=== PATIENT | male | born 1965 | race Caucasian/White ===

== ENCOUNTER 2018-12-09 13:32 | Observation (INO) ==
[2018-12-09] MEDS ORDERED: BENADRYL IV ONE (14:25)
[2018-12-09] MEDS ORDERED: DUONEB (A & A) INH ONE (14:25)
[2018-12-09] MEDS ORDERED: SOLU-MEDROL IV ONE (14:25)
[2018-12-09] MEDS ORDERED: HALDOL IV ONE (14:25)
--- NOTE | 2018-12-09 14:27 | EKG Report ---
Test Performed on : 12/09/2018 1:40:43 PM Test Reason : ams Blood Pressure : / mmHG Vent. Rate : 105 BPM Atrial Rate : 105 BPM P-R Int : 138 ms QRS Dur : 066 ms QT Int : 334 ms P-R-T Axes : 086 019 078 degrees QTc Int : 441 ms Sinus tachycardia. Otherwise normal ECG When compared with ECG of 03-JUL-2014 21:44, No significant change was found Unconfirmed Result
[2018-12-09 14:44] LABS: BASO# 0.02 X1000 (0.0-0.2); BASO% 0.3 % (0.0-0.8); EOS# 0.26 X1000 (0.0-0.7); EOS% 3.8 % (0.0-10.0); HEMATOCRIT 41.5 % (42.0-52.0); IMM GRAN# 0.02 X1000 (0.0-0.04); IMM GRAN% 0.3 % (0.0-0.5); LYMPH# 0.83 X1000 (1.2-3.4); LYMPH% 12.2 % (20.5-51.1); MCH 30.4 PG (27-31); MCHC 33.7 g/dL (33-37); MONO# 0.88 X1000 (0.11-0.59); MONO% 12.9 % (1.7-9.3); MPV 9.3 FL (7.4-10.4); NEUT# 4.79 X1000 (1.4-6.5); NEUT% 70.5 % (42.2-75.2); PLT 209 X1000 (130-400); RBC 4.61 XMIL (4.7-6.1); RDW 12.9 % (11.5-14.5)
[2018-12-09 14:53] LABS: INR 0.92; PROTIME 12.5 Seconds (11.0-16.0)
[2018-12-09 14:54] LABS: PTT 25.5 Seconds (22.3-41.8)
[2018-12-09 15:04] LABS: ALLEN TEST YES; BE 13.4 mmoll (-3.0-3.0); BLOOD TYPE ARTERIAL; HCO3-(ACT) 35.2 mmoll (20.0-26.0); METHB 1.3 % (0.0-1.5); O2HB 90.8 % (95.0-99.0); PO2(98.6) 75 mmHg (60-100); SAMPLE BLOOD; SAO2 97.8 % (95.0-100.0); THB 14.1 g/dL (11.5-17.4); pH(98.6) 7.42 (7.35-7.45)
[2018-12-09 15:11] LABS: AGAP 11; ALKALINE PHOSPHATASE 53 U/L (32-122); BUN 11 mg/dL (8-22); CALCIUM 8.7 mg/dL (8.8-10.2); CHLORIDE 94 mmol/L (98-107); COSMO 276; CREATININE 0.7 mg/dL (0.7-1.2); ESTIMATED GFR > 60; GLUCOSE 121 mg/dL (70-104); GOT 73 U/L (10-34); GPT 44 U/L (10-44); MAGNESIUM 1.9 mg/dL (1.5-2.7); POTASSIUM 3.6 mmol/L (3.5-5.1); SODIUM 138 mmol/L (136-145); TCO2 33 mmol/L (25-35); TOTAL BILIRUBIN 0.38 mg/dL (0.20-1.00)
[2018-12-09 15:14] LABS: MODALITY ROOM AIR; PCO2(98.6) 63 mmHg (35-45)
[2018-12-09 15:17] LABS: CK PROFILE 711 U/L (24-204)
[2018-12-09 15:26] LABS: URINE SOURCE CLEAN CATCH
--- NOTE | 2018-12-09 15:26 | Diag Imaging Result Doc PS360 ---
EXAM: CT HEAD W/O CONTRAST 12/09/2018 HISTORY: psychotic TECHNIQUE: This exam was performed using automated exposure control, adjustment of mA or kV according to patient size, and/or use of iterative reconstruction technique. COMMENT: There is no evidence of mass effect, bleed, or abnormal extra-axial fluid collection. The visualized paranasal sinuses are clear. The calvarium is intact. IMPRESSION: No evidence of acute intracranial disease. Electronically signed by Ricci Pedersen 12/09/2018 3:24 PM
[2018-12-09 15:33] LABS: BILIRUBIN URINE NEGATIVE (NEGATIVE); BLOOD URINE NEGATIVE (NEGATIVE); COLOR YELLOW; GLUCOSE URINE NEGATIVE (NEGATIVE); KETONE URINE NEGATIVE (NEGATIVE); LEUKOCYTES URINE NEGATIVE (NEGATIVE); NITRITE URINE NEGATIVE (NEGATIVE); PH URINE 6.5; PROTEIN URINE 30 mg/dL (NEGATIVE); SP GRAVITY URINE 1.023; TURBIDITY URINE CLEAR (CLEAR); UROBILINOGEN URINE 2 mg/dL (NORMAL)
[2018-12-09 15:34] LABS: UR EPITHELIAL CELLS <10 /HPF (<10); URINE BACTERIA NEGATIVE /HPF; URINE RBC <10 /HPF (<10); URINE WBC <10 /HPF (<10)
--- NOTE | 2018-12-09 15:35 | Diag Imaging Result Doc PS360 ---
EXAM: CHEST-2 VIEWS 12/09/2018 HISTORY: short of breath TECHNIQUE: PA and lateral chest COMMENT: There is COPD. There is platelike opacity present in the left lower lobe mostly visible on the lateral view. Otherwise considering differences in technique there has been no appreciable change since 07/03/2014. IMPRESSION: Left lower lobe atelectasis. COPD. Electronically signed by Ricci Pedersen 12/09/2018 3:33 PM
[2018-12-09 15:45] LABS: UR AMPHETAMINES QUAL PRESUMPTIVE POSITIVE (NONE DETECT); UR BARBITUATES QUAL NONE DETECTED (NONE DETECT); UR BENZODIAZEPIN QUAL NONE DETECTED (NONE DETECT); UR CANNABINOIDS QUAL NONE DETECTED (NONE DETECT); UR COCAINE QUAL NONE DETECTED (NONE DETECT); UR METHADONE QUAL NONE DETECTED (NONE DETECT); UR OPIATES QUAL NONE DETECTED (NONE DETECT); UR OXYCODONE QUAL NONE DETECTED (NONE DETECT); UR PCP QUAL NONE DETECTED (NONE DETECT)
[2018-12-09 15:45] LABS: CK INDEX 2.3 (0.0-2.5); CK-MB 16.22 ng/mL (0.0-5.0)
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
[2018-12-09] MEDS ORDERED: TYLENOL PO PRN (16:18)
[2018-12-09] MEDS ORDERED: ZOFRAN PO PRN (16:18)
[2018-12-09] MEDS ORDERED: NS 1,000 ML IV ONE (16:18)
[2018-12-09] MEDS ORDERED: NITROGLYCERIN TOP ONE (17:06)
[2018-12-09] MEDS ORDERED: ATIVAN IV ONE (17:16)
[2018-12-09] MEDS ORDERED: NITROGLYCERIN SL PRN (17:42)
[2018-12-09] MEDS ORDERED: DUONEB (A & A) INH PRN (17:42)
[2018-12-09] MEDS: NITROGLYCERIN TOP SCH ×2 (18:00→23:44)
[2018-12-09] MEDS: DUONEB (A & A) INH SCH ×2 (19:24→23:36)
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
[2018-12-09] MEDS ORDERED: ATIVAN IV PRN (21:19)
[2018-12-09] MEDS: PRAVACHOL PO SCH (21:58)
[2018-12-09] MEDS: PRINIVIL PO SCH (21:58)
[2018-12-09 21:59] LABS: CK INDEX 2.3 (0.0-2.5); CK-MB 12.3 ng/mL (0.0-5.0)
[2018-12-09] MEDS: SPIRIVA INH SCH (23:35)
[2018-12-10] MEDS: DUONEB (A & A) INH SCH ×6 (03:33→23:52)
[2018-12-10] MEDS: ATIVAN IV PRN ×2 (04:15→20:51)
[2018-12-10] MEDS: NITROGLYCERIN TOP SCH ×3 (05:08→17:51)
[2018-12-10 06:04] LABS: HEMATOCRIT 40.2 % (42.0-52.0); HEMOGLOBIN 13.2 g/dL (14.0-18.0); LYMPH# 0.71 X1000 (1.2-3.4); LYMPH% 10.1 % (20.5-51.1); MCH 29.9 PG (27-31); MCHC 32.8 g/dL (33-37); MCV 91.2 FL (81-99); MONO# 0.77 X1000 (0.11-0.59); MPV 9.4 FL (7.4-10.4); NEUT# 5.54 X1000 (1.4-6.5); NEUT% 78.9 % (42.2-75.2); PLT 228 X1000 (130-400); RBC 4.41 XMIL (4.7-6.1); RDW 13.2 % (11.5-14.5); WBC 7.02 X1000 (4.8-10.8)
[2018-12-10 06:34] LABS: AGAP 9; BUN 10 mg/dL (8-22); CALCIUM 8.9 mg/dL (8.8-10.2); CHLORIDE 96 mmol/L (98-107); COSMO 273; CREATININE 0.6 mg/dL (0.7-1.2); ESTIMATED GFR > 60; GLUCOSE 103 mg/dL (70-104); POTASSIUM 3.7 mmol/L (3.5-5.1); SODIUM 137 mmol/L (136-145); TCO2 32 mmol/L (25-35)
[2018-12-10 07:17] LABS: CK INDEX 3.1 (0.0-2.5); CK-MB 11.65 ng/mL (0.0-5.0)
[2018-12-10] MEDS: DILANTIN PO SCH (08:51)
[2018-12-10] MEDS: PRINIVIL PO SCH ×2 (08:51→20:46)
--- NOTE | 2018-12-10 09:06 | PROGRESS NOTE ---
DATE: 12/10/2018 SUBJECTIVE: The patient says he is feeling better. However, he is still getting IV Ativan. He says he is ready to go home, but I have explained to him that with the methamphetamine toxicity that increases risk for heart attack. He also has COPD and he still getting Ativan to calm his nerves. With this, I do think he has improved, but I think that he needs to wait and let us watch him today and see how he does. He was somewhat tachycardic when he first came in, and is still a little bit tachycardic at this time OBJECTIVE: Vital Signs: A pulse of 111, blood pressure 114/69, respirations 23, temperature 98.4 degrees Fahrenheit. HEENT: Normocephalic. EOMS intact. PERRLA. Throat clear. Lungs: Sound fairly clear to auscultation and percussion without rhonchi, rales, or wheezes. Heart: Tachycardic without murmurs, gallops, or friction rubs. Abdomen: Soft. Active bowel sounds. No organomegaly or tenderness. Neurological exam: The patient does look a little shaky, does not seem to be hallucinating now like he was earlier. LABORATORY FINDINGS: Show electrolytes essentially normal from yesterday. Creatine kinase came down from 711 to 529. His third set was down to 381. His CK index is 3.1, but had been 2.3 before that and MB bands were 11.65. However, his troponins have all been normal with this. He is having no chest pain at this time. I think this is more likely that this is skeletal muscle rise with a CK with normal troponins, and that is consistent with his methamphetamine toxicity. His white count is 7020, hemoglobin 13.2. Electrolytes are essentially normal. He did have presumed positive amphetamines in his system, which he has admitted to. PLAN: We will continue to watch. He is getting IV Ativan still. We will try to taper him off of this. cc: Priyank Cortes Jr, MD
[2018-12-10 15:06] LABS: CK INDEX 2.7 (0.0-2.5); CK-MB 7.69 ng/mL (0.0-5.0)
--- NOTE | 2018-12-10 16:04 | EKG Report ---
Test Performed on : 12/10/2018 3:56:59 PM Test Reason : chest pain Blood Pressure : / mmHG Vent. Rate : 115 BPM Atrial Rate : 115 BPM P-R Int : 130 ms QRS Dur : 068 ms QT Int : 310 ms P-R-T Axes : 082 060 074 degrees QTc Int : 428 ms Sinus tachycardia. Otherwise normal ECG When compared with ECG of 09-DEC-2018 13:40, (Unconfirmed) No significant change was found Confirmed by Josiah Albarran MD ([id number]) on 12/13/2018 9:32:22 PM
[2018-12-10] MEDS: SPIRIVA INH SCH (19:04)
[2018-12-10] MEDS: PRAVACHOL PO SCH (20:46)
[2018-12-11] MEDS: NITROGLYCERIN TOP SCH ×2 (00:58→05:35)
[2018-12-11] MEDS: DUONEB (A & A) INH SCH ×2 (03:13→07:47)
[2018-12-11 05:39] LABS: BASO# 0.02 X1000 (0.0-0.2); BASO% 0.3 % (0.0-0.8); HEMOGLOBIN 12.1 g/dL (14.0-18.0); LYMPH# 1.92 X1000 (1.2-3.4); LYMPH% 28.4 % (20.5-51.1); MCH 29.2 PG (27-31); MONO# 0.99 X1000 (0.11-0.59); MONO% 14.6 % (1.7-9.3); MPV 9.3 FL (7.4-10.4); NEUT# 3.64 X1000 (1.4-6.5); NEUT% 53.7 % (42.2-75.2); PLT 219 X1000 (130-400); RBC 4.15 XMIL (4.7-6.1); RDW 13.4 % (11.5-14.5); WBC 6.77 X1000 (4.8-10.8)
[2018-12-11 06:19] LABS: AGAP 5; BUN 16 mg/dL (8-22); CALCIUM 8.5 mg/dL (8.8-10.2); CHLORIDE 98 mmol/L (98-107); COSMO 276; CREATININE 0.8 mg/dL (0.7-1.2); ESTIMATED GFR > 60; GLUCOSE 91 mg/dL (70-104); POTASSIUM 4.1 mmol/L (3.5-5.1); SODIUM 138 mmol/L (136-145); TCO2 35 mmol/L (25-35)
[2018-12-11] MEDS: SPIRIVA INH SCH ×2 (06:53→07:47)
[2018-12-11 08:02] VITALS: BP 127/78
[2018-12-11] MEDS: PRINIVIL PO SCH (09:11)
[2018-12-11] MEDS: DILANTIN PO SCH (09:11)
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
== END 2018-12-11 10:20 | disposition home or self-care (01) ==
LOC: SUPCPDRO → EDIPHOLD 13:32 → ED 13:32 → 3S 18:39
PROVIDERS: ADMIT Emergency Medicine; ATTEND Emergency Medicine

== ENCOUNTER 2019-03-06 20:49 | Inpatient (IN) ==
--- NOTE | 2019-03-06 21:36 | PROVIDER DOCUMENTATION ---
HPI-General Adult - General Chief Complaint: Shortness of Breath Stated Complaint: sob Time Seen by Provider: 03/06/19 21:26 Source: patient Allergies/Adverse Reactions: Patient Allergies Allergy/AdvReac Type Severity Reaction Status Date / Time codeine Allergy Mild RASH Verified 12/09/18 13:49 aripiprazole [From Abilify] AdvReac Unknown RASH Verified 12/09/18 13:49 clonazepam [From Klonopin] AdvReac Unknown RASH Verified 12/09/18 13:49 quetiapine fumarate * AdvReac Unknown RASH Verified 12/09/18 13:49 [From Seroquel] Home Medications: Home Medication List Medication Instructions Recorded Confirmed Last Taken Type Ipratropium/Albuterol INH 2 puff INH RTQ6H PRN 04/28/13 12/09/18 08/03/14 History [Combivent Respimat Inhaler] LISINOpril [Prinivil] 40 mg PO BID 04/28/13 12/09/18 08/03/14 History PRAVAstatin [Pravachol] 80 mg PO HS 04/28/13 12/09/18 08/03/14 History Phenytoin [Dilantin] 600 mg PO DAILY 04/28/13 12/09/18 08/03/14 History Albuterol [Albuterol Neb] 1 dose INH Q6H PRN PRN 10/12/13 12/09/18 08/02/14 History Nebulizer and Compressor 1 unit INH Q6H PRN 10/12/13 12/09/18 07/03/14 10:30 History [Inspiration Elite Nebulizer] Nitroglycerin 0.4 mg SL DIRECTED PRN 10/12/13 12/09/18 Unknown History Aspirin 81 mg PO QAM 12/09/18 12/09/18 Unknown History Betamethasone Dip 0.05% Cream 15 gm TOP BID 12/09/18 12/09/18 Unknown History [Diprosone 0.05% Cream] Buspirone [Buspar] 30 mg PO TID 12/09/18 12/09/18 Unknown History Metoprolol Tartrate 25 mg PO QAM 12/09/18 12/09/18 Unknown History Mometasone Furoate [Elocon] 15 gm TOP QAM 12/09/18 12/09/18 Unknown History Mupirocin 22 gm TOP BID 12/09/18 12/09/18 Unknown History Omeprazole 40 mg PO QAM 12/09/18 12/09/18 Unknown History Tamsulosin [Flomax] 0.4 mg PO QAM 12/09/18 12/09/18 Unknown History - History of Present Illness -Gen Adult Nature of Presenting Problems: This is a 54yo male who presents with CC of shortness of breath. The patient reports that he has been having progressive shortness of breath for the past 4-5 days. The pt reports hx of COPD and lung cancer. The patient reports that he has been having a productive cough but denies a fever. The patient denies chest pain. Location of Pain/Injury: reports: none Onset/Duration: reports: 3 days ago Timing: reports: still present, getting worse Context/Activities at Onset: reports: none Associated Symptoms: reports: cough, shortness of breath Review of Systems - Adult - REVIEW OF SYSTEMS - ADULT Constitutional: denies: fever Eyes: reports: no symptoms reported Ears, Nose, Mouth & Throat: reports: no symptoms reported Cardiovascular: reports: no symptoms reported. denies: chest pain Respiratory: reports: cough, shortness of breath Gastrointestinal: reports: no symptoms reported. denies: abdominal pain Genitourinary: reports: no symptoms reported. denies: flank pain Musculoskeletal: reports: no symptoms reported Integumentary: reports: no symptoms reported Neurological: reports: headache/migraines Psychiatric: reports: no symptoms reported Endocrine: reports: no symptoms reported Hematologic/Lymphatic: reports: no symptoms reported Allergic/Immunologic: reports: no symptoms reported Past History - Adult - PAST MEDICAL HISTORY-ADULT Review of Records: reports: Old Records Reviewed Major Childhood Illnesses: reports: history unknown Cardiovascular: reports: CAD, HTN, hyperlipidemia, ME Respiratory: reports: asthma, COPD, cancer (lung), sleep apnea Gastrointestinal: reports: GERD Obstetrical/Gynecological: reports: denies history Genitourinary: reports: denies history Musculoskeletal: reports: denies history Neurological: reports: CVA, Seizures/Epilepsy (last episode was ), TIA Endocrine/Immune: reports: denies history Other Conditions: reports: other (SLEEP APNEA) - PRIOR SURGERIES/PROCEDURES Surgical/Procedure History: reports: cholecystectomy, joint replacement (TOTAL KNEE ), other (hemorrhoidectomy) - PRIOR HOSPITALIZATIONS Prior Hospitalizations: reports: none - IMMUNIZATION STATUS Childhood Immunizations: See Nurse Assessment Flu Vaccine: UTD - FAMILY HISTORY Family History: reviewed, not pertinent Physical Exam-General - PHYSICAL EXAM-ADULT Initial Vital Signs Reviewed: Yes - CONSTITUTIONAL General Appearance: alert, moderate distress, cachetic, thin - EYES Eyes: negative: conjuctival exudate - HEAD, EARS, NOSE, MOUTH & THROAT HENMT: normocephalic/atraumatic - NECK Neck: supple. negative: trachial deviation - RESPIRATORY Respiratory: respiratory distress, decreased breath sounds, accessory muscle use , wheezing (bilateral) - CARDIOVASCULAR Cardiovascular: tachycardia, other (1+ LE edema on the RLE) - GASTROINTESTINAL (ABDOMEN) Abdominal Exam: non tender, soft - SKIN Integumentary: normal color, warm/dry - NEUROLOGIC Neurologic: grossly normal - PSYCHIATRIC Psych/Mental Status: anxious Progress - PLAN OF CARE/RESULTS Progress/Plan/Lab Results: Vital Signs - 8 hr 03/06/19 20:55 03/06/19 20:57 03/06/19 21:01 Temperature Pulse Rate 123 H Respiratory Rate 16 Blood Pressure 150/100 131/79 O2 Sat by Pulse Oximetry 100 100 100 03/06/19 21:08 03/06/19 21:16 Temperature 99.1 F Pulse Rate 121 H 127 H Respiratory Rate 25 H 18 Blood Pressure 131/79 167/114 O2 Sat by Pulse Oximetry 100 Result Diagrams: 03/06/19 21:12 03/06/19 21:12 - REASSESSMENT Reassessment #1 Status: other (Patient with improvment on BIPAP. Patient ABG with acidosis and hypercarbia. Started patient on sepsis protocol with abx and fluids. CXR concerning for possilbe Left Lobe PNA. Patient discussed with hospitalist team who has accepted the patient for admission.) Departure - Departure Date of Disposition Decision: 03/07/19 Time of Disposition Decision: 00:05 DIAGNOSIS: COPD exacerbation, Acute hypercapnic respiratory failure Sepsis Qualifiers: Sepsis type: sepsis due to unspecified organism Sepsis acute organ dysfunction status: unspecified Qualified Code(s): A41.9 - Sepsis, unspecified organism Pneumonia Qualifiers: Pneumonia type: due to unspecified organism Laterality: left Lung location: lower lobe of lung Qualified Code(s): J18.1 - Lobar pneumonia, unspecified organism Disposition: ADMITTED INPATIENT 09 Certified Medical Emergency: Emergent Condition: Serious Referrals and Follow-Ups: Priyank Cortes Jr, MD [Primary Care Provider] - - Critical Care Note This patient required my direct & personal management of CC.: Yes Total Time (mins): 30 Critical Care Statement: This patient required my direct personal management to treat or rule out processes, the absence of which, could potentiallly result in sudden, clinically significant life or limb threatening deterioration. Comments: Patient required bipap due to acute respiratory failure. Attestation - Physician/ RAMIN Attestation Patient care was provided by Advanced Practice Provider:: No The physician spent face to face time with patient:: Yes Advanced Practice Provider documentation review:: Supervising physician onsite and consulted in the evaluation and care of this patient. The physician did have a face to face encounter with the patient.
[2019-03-06 21:56] LABS: BASO# 0.04 X1000 (0.0-0.2); BASO% 0.2 % (0.0-0.8); EOS# 0.16 X1000 (0.0-0.7); HEMATOCRIT 45.7 % (42.0-52.0); HEMOGLOBIN 13.7 g/dL (14.0-18.0); IMM GRAN# 0.12 X1000 (0.0-0.04); IMM GRAN% 0.7 % (0.0-0.5); LYMPH# 1.97 X1000 (1.2-3.4); LYMPH% 11.9 % (20.5-51.1); MCH 29.4 PG (27-31); MCV 98.1 FL (81-99); MONO# 2.05 X1000 (0.11-0.59); MONO% 12.4 % (1.7-9.3); MPV 8.2 FL (7.4-10.4); NEUT# 12.21 X1000 (1.4-6.5); NEUT% 73.8 % (42.2-75.2); PLT 447 X1000 (130-400); RBC 4.66 XMIL (4.7-6.1); WBC 16.55 X1000 (4.8-10.8)
[2019-03-06 22:00] LABS: ALLEN TEST YES; BE 12.9 mmoll (-3.0-3.0); BLOOD TYPE ARTERIAL; HCO3-(ACT) 34.9 mmoll (20.0-26.0); METHB 1.1 % (0.0-1.5); O2(CT) 18.9 mL/dL (15.0-23.0); O2HB 92.8 % (95.0-99.0); PO2(98.6) 150 mmHg (60-100); SAMPLE BLOOD; SAO2 99.6 % (95.0-100.0); SRATE 4 BPM; THB 14.3 g/dL (11.5-17.4); pH(98.6) 7.24 (7.35-7.45)
[2019-03-06 22:02] LABS: MODALITY BI PAP
[2019-03-06 22:04] LABS: PCO2(98.6) 106 mmHg (35-45)
--- NOTE | 2019-03-06 22:09 | EKG Report ---
Test Performed on : 03/06/2019 9:18:00 PM Test Reason : shortness of breath Blood Pressure : / mmHG Vent. Rate : 135 BPM Atrial Rate : 135 BPM P-R Int : 120 ms QRS Dur : 066 ms QT Int : 288 ms P-R-T Axes : 089 046 065 degrees QTc Int : 432 ms Sinus tachycardia. Low voltage QRS Borderline ECG When compared with ECG of 10-DEC-2018 15:56, No significant change was found Unconfirmed Result
[2019-03-06] MEDS ORDERED: NS 1,000 ML IV ONE (22:22)
[2019-03-06 22:41] LABS: AGAP 9; ALB/GLOB RATIO 1.7; ALBUMIN 4.2 g/dL (3.5-5.0); ALKALINE PHOSPHATASE 94 U/L (32-122); BUN 16 mg/dL (8-22); CALCIUM 8.5 mg/dL (8.8-10.2); CHLORIDE 95 mmol/L (98-107); COSMO 285; CREATININE 0.4 mg/dL (0.7-1.2); ESTIMATED GFR > 60; GLUCOSE 112 mg/dL (70-104); GOT 35 U/L (10-34); GPT 39 U/L (10-44); SODIUM 142 mmol/L (136-145); TCO2 38 mmol/L (25-35); TOTAL BILIRUBIN 0.28 mg/dL (0.20-1.00); TOTAL PROTEIN 6.7 g/dL (6.3-8.3)
[2019-03-06] MEDS ORDERED: VANCOMYCIN 1 GM/NS 1 GM/250 ML IVPB IV ONE (22:53)
[2019-03-06 23:24] LABS: INR 0.98; PROTIME 13.1 Seconds (11.0-16.0)
[2019-03-06 23:25] LABS: PTT 25.9 Seconds (22.3-41.8)
[2019-03-06] MEDS ORDERED: DUONEB (A & A) INH PRN (23:33)
[2019-03-06] MEDS ORDERED: VANCOMYCIN IV PER PHARMACY MISC SCH (23:45)
[2019-03-06] MEDS: SOLU-MEDROL IV SCH (23:45)
[2019-03-06] MEDS: NS 1,000 ML IV SCH (23:45)
[2019-03-07 00:07] LABS: ALLEN TEST YES; BE 16.6 mmoll (-3.0-3.0); BLOOD TYPE ARTERIAL; HCO3-(ACT) 37.8 mmoll (20.0-26.0); METHB 1.1 % (0.0-1.5); O2(CT) 19.2 mL/dL (15.0-23.0); O2HB 94.3 % (95.0-99.0); PO2(98.6) 214 mmHg (60-100); SAMPLE BLOOD; THB 14.1 g/dL (11.5-17.4); pH(98.6) 7.25 (7.35-7.45)
[2019-03-07 00:13] LABS: MODALITY BI PAP; PCO2(98.6) 113 mmHg (35-45)
[2019-03-07] MEDS ORDERED: NICODERM PATCH TD PRN (00:14)
[2019-03-07] MEDS ORDERED: ZOSYN 4.5 GM in NS 100 ML IV SCH (01:00)
--- NOTE | 2019-03-07 01:15 | HISTORY AND PHYSICAL ---
CHIEF COMPLAINT: Shortness of breath for about 6 days. HISTORY OF PRESENT ILLNESS: Mr. Jose Luis Albarran is a 54-year-old male with a history of COPD, coronary disease, lung cancer, hypertension, sleep apnea, seizure disorder, tobacco use history. The patient is on home oxygen 3 L. He presents to the hospital because of shortness of breath for about 6 days associated with cough productive of yellowish sputum as well as wheezing. At the time of presentation, the patient arterial blood gases was 7.24/106/150/99.6%. The patient was placed on BiPAP. He has also been placed on nebulized bronchodilators, steroids, and will be admitted to the intensive care unit for further management. Preliminary x-ray chest reading, possible pneumonic infiltrate in the left lung field. PAST MEDICAL HISTORY: 1. COPD. 2. Coronary artery disease. 3. Lung cancer. 4. Seizure disorder. 5. Benign prostatic hypertrophy. 6. Depression. 7. Anxiety disorder. 8. Hypertension. 9. Hyperlipidemia. 10. Diabetes mellitus. 11. History of CVA. 12. Gastroesophageal reflux disease. PAST SURGICAL HISTORY: 1. Cholecystectomy. 2. Knee surgery. 3. Hemorrhoidectomy. FAMILY HISTORY: Positive for asthma, lung cancer, diabetes. SOCIAL HISTORY: Smokes cigarettes and drinks alcohol. Also, has a history of drug use. ALLERGIES: He is allergic to Abilify, Augmentin, Klonopin, Seroquel. MEDICATIONS: 1. Combivent Respimat 2 puffs every 6 hours. 2. Lisinopril 5 mg p.o. twice a day. 3. Pravastatin 80 mg p.o. at bedtime. 4. Phenytoin 600 mg p.o. daily. 5. Albuterol neb q.6 hours p.r.n. 6. Nitroglycerin 0.4 mg as directed. 7. Aspirin 81 mg p.o. daily. 8. Betamethasone cream as directed. 9. Buspirone 30 mg p.o. 3 times a day. 10. Metoprolol 25 mg p.o. q.a.m. 11. Elocon 15 g topical q.a.m. 12. Mupirocin 22 g topical twice a day. 13. Omeprazole 40 mg p.o. q.a.m. 14. Tamsulosin 0.4 mg q.a.m. REVIEW OF SYSTEMS: Constitutional: No fevers. MANAGER SYSTEM: No headaches. Eyes: No blurred vision. ENT: No hearing loss or sinus problems. Cardiovascular: No chest pain. Gastrointestinal: No nausea, vomiting, diarrhea, abdominal pain. Genitourinary: No dysuria. Psychiatric: No anxiety or depression. Dermatology: No skin lesions. Hematology: No bleeding problems. Musculoskeletal: Has joint pain. Endocrinology: Positive for diabetes. PHYSICAL EXAMINATION: VITAL SIGNS ARE FOLLOWS: Temperature 99.1 degrees, pulse 121, respiratory rate is 25, blood pressure 131/79, oxygen saturation 99%. HEENT: Atraumatic, normocephalic. He is anicteric. Pupils are equal, poorly reactive to light. The patient does have a BiPAP mask in place. NECK: No lymphadenopathy or thyromegaly. CARDIOVASCULAR: S1, S2. Tachycardic. RESPIRATORY: No rales or rhonchi noted. ABDOMEN: Soft, nontender. No masses felt. EXTREMITIES: No evidence of edema in the lower extremities. CENTRAL NERVOUS SYSTEM: No obvious focal deficit noted. LABORATORY DATA: WBC 16.5, hematocrit 45.7, with a platelet count of 447,000. INR is 0.98. ABG is 7.24/106/150/99.6%. Sodium is 142, potassium 4.0, chloride 95, bicarb 30, BUN is 16, creatinine 0.4. Glucose 112. X-ray chest shows possible infiltrate left lung field. ASSESSMENT AND PLAN: 1. Acute hypercapnic respiratory failure. Maintain patient on BiPAP as well as oxygen supplementation. Treat primary lung condition. 2. Chronic obstructive pulmonary disease exacerbation. Place patient on nebulized bronchodilators, steroids, as well as antibiotics. 3. Probable pneumonia. Obtain sputum culture, blood cultures. Maintain patient on antibiotics. The patient was recently in the hospital. We will treat for hospital- acquired pneumonia. 4. Lung cancer. Aware. Consulted patient's Oncology. 5. Obstructive sleep apnea. The patient is currently on BiPAP. 6. Leukocytosis, probably secondary to infective process. Follow up on patient's white count. 7. Coronary artery disease. Place patient on telemetry. Check cardiac enzymes. Continue aspirin as well as beta kelli. 8. Gastroesophageal reflux disease. Continue proton pump inhibitor. 9. Diabetes mellitus. Maintain patient on sliding scale insulin. Monitor blood sugar levels. Check hemoglobin A1c level. 10. Tobacco use history. Recommend nicotine patch. 11. Seizure disorder. Place patient on seizure precautions. Continue Dilantin. Check phenytoin level. 12. Deep vein thrombosis prophylaxis. Lovenox. 13. Gastrointestinal prophylaxis. Proton pump inhibitor. 14. Benign prostatic hypertrophy. Continue tamsulosin. cc: MD Priyank Son Jr, MD MTDD
[2019-03-07] MEDS: ZOSYN 3.375 GM in NS 50 ML IV SCH ×4 (01:58→19:43)
[2019-03-07] MEDS: LEVAQUIN 750 MG/D5W 750 MG/150 ML IVPB IV SCH (02:02)
[2019-03-07] MEDS: DUONEB (A & A) INH SCH ×6 (03:33→23:22)
[2019-03-07] MEDS ORDERED: ATIVAN IV PRN (03:40)
[2019-03-07] MEDS ORDERED: VANCOMYCIN 850 MG in NS 250 ML IV ONE (04:00)
[2019-03-07 04:55] LABS: ALLEN TEST YES; BE 10.7 mmoll (-3.0-3.0); BLOOD TYPE ARTERIAL; HCO3-(ACT) 33.2 mmoll (20.0-26.0); METHB 1.2 % (0.0-1.5); O2(CT) 23.3 mL/dL (15.0-23.0); O2HB 94.9 % (95.0-99.0); PO2(98.6) 115 mmHg (60-100); SAMPLE BLOOD; THB 17.4 g/dL (11.5-17.4); pH(98.6) 7.27 (7.35-7.45)
[2019-03-07 04:57] LABS: MODALITY BI PAP
[2019-03-07 04:58] LABS: PCO2(98.6) 94 mmHg (35-45)
[2019-03-07] MEDS: PRILOSEC PO SCH (06:23)
[2019-03-07 06:32] LABS: BASO# 0.01 X1000 (0.0-0.2); BASO% 0.1 % (0.0-0.8); EOS# 0.01 X1000 (0.0-0.7); EOS% 0.1 % (0.0-10.0); HEMATOCRIT 42.7 % (42.0-52.0); HEMOGLOBIN 12.5 g/dL (14.0-18.0); IMM GRAN# 0.09 X1000 (0.0-0.04); IMM GRAN% 0.5 % (0.0-0.5); LYMPH# 0.43 X1000 (1.2-3.4); LYMPH% 2.6 % (20.5-51.1); MCH 29.2 PG (27-31); MCHC 29.3 g/dL (33-37); MCV 99.8 FL (81-99); MONO# 0.54 X1000 (0.11-0.59); MONO% 3.3 % (1.7-9.3); MPV 8.1 FL (7.4-10.4); NEUT# 15.31 X1000 (1.4-6.5); NEUT% 93.4 % (42.2-75.2); PLT 385 X1000 (130-400); RBC 4.28 XMIL (4.7-6.1); RDW 14.9 % (11.5-14.5); WBC 16.39 X1000 (4.8-10.8)
[2019-03-07] MEDS: SOLU-MEDROL IV SCH ×2 (07:02→15:00)
[2019-03-07 07:10] LABS: AGAP 12; ALB/GLOB RATIO 1.2; ALBUMIN 3.5 g/dL (3.5-5.0); ALKALINE PHOSPHATASE 81 U/L (32-122); BUN 19 mg/dL (8-22); CALCIUM 8.5 mg/dL (8.8-10.2); CHLORIDE 96 mmol/L (98-107); COSMO 286; CREATININE 0.6 mg/dL (0.7-1.2); ESTIMATED GFR > 60; GLUCOSE 103 mg/dL (70-104); GOT 28 U/L (10-34); GPT 32 U/L (10-44); POTASSIUM 4.9 mmol/L (3.5-5.1); SODIUM 142 mmol/L (136-145); TCO2 34 mmol/L (25-35); TOTAL BILIRUBIN 0.21 mg/dL (0.20-1.00); TOTAL PROTEIN 6.4 g/dL (6.3-8.3)
--- NOTE | 2019-03-07 07:10 | Diag Imaging Result Doc PS360 ---
EXAM: CHEST-1 VIEW 03/07/2019 HISTORY: copd TECHNIQUE: AP portable at 0523 COMMENT: There is hyperinflation of the lungs. Compared to 03/06/2019 this is slightly worse but there is otherwise no significant change. IMPRESSION: COPD. Electronically signed by Ricci Pedersen 03/07/2019 7:07 AM
--- NOTE | 2019-03-07 07:11 | Diag Imaging Result Doc PS360 ---
EXAM: CHEST-1 VIEW 03/06/2019 HISTORY: Shortness of breath TECHNIQUE: AP portable upright at 2228 COMMENT: There is an ill-defined focal opacity on the left in the lower mid lung field which is slightly worse than on 12/09/2018. The lungs are not as inflated as they were on the previous study. The heart size and primary vascularity are within normal limits. IMPRESSION: Pneumonia probably in the lingula. Advise follow-up until clear. Electronically signed by Ricci Pedersen 03/07/2019 7:09 AM
[2019-03-07] MEDS: BUSPAR PO SCH ×3 (08:37→20:21)
[2019-03-07] MEDS: ASPIRIN PO SCH (08:38)
[2019-03-07] MEDS: LOVENOX SUBQ SCH ×2 (08:38→08:43)
[2019-03-07] MEDS: DILANTIN PO SCH (08:38)
[2019-03-07] MEDS: PRINIVIL PO SCH ×2 (08:38→20:21)
[2019-03-07] MEDS: FLOMAX PO SCH (08:38)
[2019-03-07] MEDS: LOPRESSOR PO SCH (09:40)
[2019-03-07 09:54] LABS: URINE SOURCE CLEAN CATCH
[2019-03-07 10:02] LABS: BILIRUBIN URINE NEGATIVE (NEGATIVE); BLOOD URINE NEGATIVE (NEGATIVE); COLOR YELLOW; GLUCOSE URINE NEGATIVE (NEGATIVE); KETONE URINE NEGATIVE (NEGATIVE); LEUKOCYTES URINE NEGATIVE (NEGATIVE); NITRITE URINE NEGATIVE (NEGATIVE); PROTEIN URINE TRACE mg/dL (NEGATIVE); SP GRAVITY URINE 1.032; TURBIDITY URINE CLEAR (CLEAR); UR EPITHELIAL CELLS <10 /HPF (<10); URINE BACTERIA NEGATIVE /HPF; URINE RBC <10 /HPF (<10); URINE WBC <10 /HPF (<10); UROBILINOGEN URINE NORMAL (NORMAL)
--- NOTE | 2019-03-07 12:27 | PROGRESS NOTE ---
DATE: 03/07/2019 Mr. Albarran was admitted last night with acute respiratory failure. His pCO2 was very high. It has come down to 94 with pH of 7.27, PO2 is 115. He is a known case of COPD, smokes about a pack of cigarettes per day. He also has coronary artery disease with history of lung cancer. He is being followed by Dr. Garcia, and will ask Respiratory consult with Dr. Hernandez. Overall condition is about the same. He is on IV vancomycin as well as Zosyn. Will continue to watch him in ICU. -9 cc: MD Priyank Corrigan Jr, MD
--- NOTE | 2019-03-07 14:59 | PULMONOLOGY CONSULTATION ---
DATE: 03/07/2019 REQUESTING CLINICIAN: Dr. Carrillo. REASON FOR CONSULTATION: Respiratory failure. HISTORY OF PRESENT ILLNESS: Mr. Albarran is a 54-year-old male with a greater than 40 pack-year history for tobacco, polysubstance abuse, who underwent treatment for an early stage lung cancer by his report with radiation therapy in 2014. Information is not currently in our system. The patient was last admitted to this hospital in December due to methamphetamine toxicity. The patient reports he was doing well until the last several days when he has had increased cough with increased sputum production. The patient was evaluated in the emergency room and reported a productive cough along with increased dyspnea. Arterial blood gas revealed hypoxemic and hypercapnic respiratory failure with a pH of 7.24, pCO2 of 106, and a PO2 of 150. His carboxyhemoglobin level was elevated at 5.7. His chest x-ray revealed possible pneumonia in the lingula. It is slightly worsened on followup chest x-ray. The patient reports he is doing better. He is currently complaining about the food. PAST MEDICAL HISTORY: 1. COPD with ongoing tobacco use. 2. History of lung cancer, status post radiation treatment. 3. Seizure disorder. 4. Coronary artery disease. 5. Anxiety/depressive disorder. 6. BPH. 7. Dyslipidemia. 8. Hypertension. 9. Diabetes. 10. Gastroesophageal reflux. 11. History of stroke. 12. Status post cholecystectomy. 13. Status post hemorrhoidectomy. FAMILY HISTORY: Positive for lung cancer, diabetes, and asthma. SOCIAL HISTORY: Notable for ongoing alcohol, drug, and tobacco use. REVIEW OF SYSTEMS: Notable for wet cough, increased shortness of breath, increased weakness, increasing weight loss. PHYSICAL EXAMINATION: Reveals a thin, white male with a BMI of 17.5. He is requesting a hamburger for lunch. BP 106/55, heart rate 104, respiratory rate 20, oxygen saturation 98%. HEENT: Pupils are equal and reactive. Oropharynx appears clear. Neck: Supple. Chest: Reveals diffuse wheezing throughout all lung knight. Cardiac Examination: S1-S2. Abdomen: Soft. Extremities: Reveal trace edema. LABORATORIES: Chest x-ray reveals hyperinflation without acute infiltrates. Arterial blood gas reveals a pH of 7.27, pCO2 of 94, PO2 of 115. Sodium 142, potassium 4.9, chloride 96, bicarbonate 34, BUN 19, creatinine 0.6. IMPRESSION: A 54-year-old with severe chronic obstructive pulmonary disease, acute hypoxemic respiratory failure, acute hypercapnic respiratory failure, ongoing tobacco use, history of polysubstance abuse. RECOMMENDATIONS: 1. Strongly encouraged patient to discontinue tobacco. 2. Liberalize intake to encourage caloric consumption. 3. Continue steroids, antibiotics, and nebulizer treatments. 4. Overall prognosis is guarded with ongoing tobacco use. cc: MD Priyank Adam Jr, MD
[2019-03-07] MEDS: NS 1,000 ML IV SCH (16:01)
[2019-03-07] MEDS: VANCOMYCIN 1,500 MG in NS 250 ML IV SCH (16:01)
[2019-03-07] MEDS: PRAVACHOL PO SCH (20:20)
[2019-03-08] MEDS: SOLU-MEDROL IV SCH ×4 (00:04→23:36)
[2019-03-08] MEDS: NS 1,000 ML IV SCH ×2 (01:39→15:09)
[2019-03-08] MEDS: ZOSYN 3.375 GM in NS 50 ML IV SCH ×4 (01:40→20:37)
[2019-03-08] MEDS: LEVAQUIN 750 MG/D5W 750 MG/150 ML IVPB IV SCH (01:52)
[2019-03-08] MEDS: DUONEB (A & A) INH SCH ×6 (03:39→23:22)
[2019-03-08] MEDS: VANCOMYCIN 1,500 MG in NS 250 ML IV SCH (03:58)
[2019-03-08 04:48] LABS: ALLEN TEST YES; BE 12.9 mmoll (-3.0-3.0); BLOOD TYPE ARTERIAL; METHB 1.3 % (0.0-1.5); O2(CT) 15.9 mL/dL (15.0-23.0); O2HB 96.6 % (95.0-99.0); PO2(98.6) 153 mmHg (60-100); SAMPLE BLOOD; SAO2 99.2 % (95.0-100.0); THB 11.5 g/dL (11.5-17.4); pH(98.6) 7.36 (7.35-7.45)
[2019-03-08 04:50] LABS: MODALITY BI PAP; PCO2(98.6) 73 mmHg (35-45)
[2019-03-08] MEDS: PRILOSEC PO SCH (06:05)
--- NOTE | 2019-03-08 06:10 | Diag Imaging Result Doc PS360 ---
EXAM: CHEST-PORTABLE HISTORY: abnormal exam TECHNIQUE: Single view COMPARISON: 03/07/2019 FINDINGS: The lungs are hyperexpanded. The heart is not enlarged. The vessels are not distended. There are no infiltrates. No effusion identified. Scattered granuloma. IMPRESSION: Emphysema Electronically signed by Kashmir Barrera 03/08/2019 6:08 AM
[2019-03-08 06:24] LABS: HEMATOCRIT 37.3 % (42.0-52.0); HEMOGLOBIN 10.9 g/dL (14.0-18.0); IMM GRAN# 0.07 X1000 (0.0-0.04); IMM GRAN% 0.5 % (0.0-0.5); LYMPH# 0.57 X1000 (1.2-3.4); MCH 29.2 PG (27-31); MCHC 29.2 g/dL (33-37); MONO# 0.46 X1000 (0.11-0.59); MONO% 3.2 % (1.7-9.3); MPV 8.5 FL (7.4-10.4); NEUT# 13.14 X1000 (1.4-6.5); NEUT% 92.3 % (42.2-75.2); PLT 366 X1000 (130-400); RBC 3.73 XMIL (4.7-6.1); RDW 14.9 % (11.5-14.5); WBC 14.24 X1000 (4.8-10.8)
[2019-03-08 06:44] LABS: AGAP 5; ALB/GLOB RATIO 1.2; ALBUMIN 3.1 g/dL (3.5-5.0); ALKALINE PHOSPHATASE 65 U/L (32-122); BUN 20 mg/dL (8-22); CALCIUM 8.2 mg/dL (8.8-10.2); CHLORIDE 98 mmol/L (98-107); COSMO 283; CREATININE 0.7 mg/dL (0.7-1.2); ESTIMATED GFR > 60; GLUCOSE 145 mg/dL (70-104); GOT 21 U/L (10-34); GPT 24 U/L (10-44); PHOSPHORUS 2.3 mg/dL (2.7-4.5); POTASSIUM 4.9 mmol/L (3.5-5.1); SODIUM 139 mmol/L (136-145); TCO2 36 mmol/L (25-35); TOTAL BILIRUBIN < 0.15 mg/dL (0.20-1.00); TOTAL PROTEIN 5.6 g/dL (6.3-8.3)
[2019-03-08] MEDS: BUSPAR PO SCH ×3 (08:18→20:36)
[2019-03-08] MEDS: PRINIVIL PO SCH ×2 (08:18→20:36)
[2019-03-08] MEDS: DILANTIN PO SCH (08:18)
[2019-03-08] MEDS: FLOMAX PO SCH (08:18)
[2019-03-08] MEDS: LOPRESSOR PO SCH (08:18)
[2019-03-08] MEDS: LOVENOX SUBQ SCH ×2 (08:18→08:24)
[2019-03-08] MEDS: ASPIRIN PO SCH (08:21)
--- NOTE | 2019-03-08 09:51 | PROGRESS NOTE ---
DATE: 03/08/2019 SUBJECTIVE: The patient says he is feeling a little bit better. He is afebrile with a temperature of 98.1 degrees Fahrenheit. OBJECTIVE: Temperature as above, blood pressure is 121/77, respirations 15, pulse 103 and regular. Laboratory: White count down to 14,240, hemoglobin 10.9, hematocrit 37.3. Blood gases improved with a pH now of 7.36 where he had been acidotic with a 7.25 pH. The pCO2 has dropped from 113 down to 73, PO2 is 153. HEENT is normocephalic. EOMs intact. PERRLA. Throat clear. Lungs have a few wheezes anteriorly. Heart is regular rate and rhythm without murmurs, gallops, or friction rubs. Abdomen is soft. Active bowel sounds. No organomegaly or tenderness. Cardiac enzymes were negative. ASSESSMENT: 1. Respiratory distress. 2. Exacerbation of chronic obstructive pulmonary disease. 3. Lingular infiltrate which seems to have resolved. 4. Tobacco addiction. 5. Methamphetamine addiction. 6. History of lung cancer. 7. Coronary artery disease. PLAN: Continue care. It should also be noted that the patient has seizure disorder. He is on Dilantin or has been. His Dilantin level was low at 0.90. We will get physical therapy to work with him. We will check on his Dilantin. cc: Priyank Cortes Jr, MD
--- NOTE | 2019-03-08 13:28 | PULMONOLOGY PROGRESS NOTE ---
DATE: 03/08/2019 SUBJECTIVE: The patient is awake and alert. He reports he has had better days than this, but he has also had worse days. He is tolerating p.o. intake. He can converse in a full sentence. OBJECTIVE: Vital Signs: The patient has been afebrile for the last 24 hours. Blood pressure 117/73, heart rate 108, respiratory rate 17, oxygen saturation 94% on 5 L per nasal cannula. HEENT: Pupils are equal and reactive. Oropharynx appears clear. Neck: Supple chest reveals decreased breath sounds with wheezing bilaterally. Cardiac exam: S1-S2. Abdomen: Soft. Extremities: Reveal no edema. LABORATORIES: Arterial blood gas reveals a pH 7.36, pCO2 of 73, PO2 of 153 on BiPAP. White blood count 14.24, hemoglobin 10.9, platelet count 366,000. Chest x-ray reveals emphysema. IMPRESSION: A 54-year-old with 1. Chronic obstructive pulmonary disease exacerbation. 2. Acute hypoxemic respiratory failure. 3. Acute hypercapnic respiratory failure. 4. History of methamphetamine use. 5. Ongoing nicotine addiction/use. PLAN: 1. Continue current treatment regimen. 2. Continue oxygen and BiPAP as necessary. 3. Strongly encouraged patient to discontinue illicit drugs and nicotine. 4. Prognosis is guarded with ongoing tobacco use. cc: MD Priyank Adam Jr, MD
[2019-03-08] MEDS: VANCOMYCIN 1,600 MG in NS 250 ML IV SCH (18:31)
--- NOTE | 2019-03-08 19:24 | HEMO/ONC CONSULTATION ---
DATE: 03/08/2019 CONSULTATION REQUESTED BY: Hospitalist service. REASON FOR CONSULTATION: Consultation is for history of lung cancer. HISTORY OF PRESENT ILLNESS: Mr. Albarran is a 54-year-old, male who is known to us as we have previously been involved in his treatment for T3 N0 M0 non-small cell lung cancer. It appears that the patient presented to the [facility] Emergency Department with increased shortness of breath as well as a productive cough and wheezing. He had hypoxia at presentation and has now been admitted for evaluation and treatment of COPD exacerbation/pneumonia. The patient received definitive radiation therapy back in January 2014. He refused any surgical intervention and then refused any chemotherapy back in 2013. He has had no evidence of recurrence with close monitoring over these past 5 years. In fact, recently, we released the patient from our care. The patient has multiple health issues including COPD and coronary artery disease. He has had CHF. Patient is currently in the ICU and reports that he is feeling better. PAST MEDICAL HISTORY: 1. Lung cancer status post definitive radiation therapy back in January 2014. No surgery. No chemotherapy. Recently released from our care as he has been cancer-free for 5 years. 2. COPD. 3. Coronary artery disease. 4. Seizure disorder. 5. Depression and anxiety. 6. Hypertension. 7. Hyperlipidemia. 8. History of CVA. PAST SURGICAL HISTORY: 1. Cholecystectomy. 2. Knee surgery. 3. Hemorrhoidectomy. SOCIAL HISTORY: Patient smokes cigarettes and drinks alcohol on a regular basis. He denies any history of drug use. FAMILY HISTORY: Positive for asthma, lung cancer and diabetes. PHYSICAL EXAMINATION: Vital Signs: Temperature 98.9 degrees, heart rate 78, respirations 14, blood pressure 93/58, O2 saturation 97% on nasal cannula. General: This is a man sitting up in a hospital chair in his room in the ICU. He is in no acute distress at this time. HEENT: Head normocephalic, atraumatic. Eyes: Pupils equal, round, reactive. Ears, nose, throat, neck, mouth mucosa appears to be normal. Gross auditory acuity intact. Cardiovascular: S1, S2 heard. Regular rate and rhythm. Respiratory: Chest with some coarse breath sounds. No rhonchi, rales or wheezing noted. Gastrointestinal: Abdomen is soft. Musculoskeletal: No obvious bony abnormalities. Extremities: He has some trace bilateral extremity edema. Neurologic: Patient is alert and oriented. LABS AND STUDIES: White blood cells today are 14.24, hemoglobin 10.9, platelets 366,000. Sodium 139, potassium 4.9, chloride 98, CO2 is 36, BUN is 20, creatinine 0.7, glucose is 145. LFTs within normal limits. ASSESSMENT AND PLAN: 1. Non-small cell lung cancer, status post treatment back in January 2014. Again, the patient is status post definitive radiation therapy back in 2013. He declined any surgical intervention at the time of diagnosis. And then after that he had declined any chemotherapy to help treat his cancer at the time. We have been following him for 5 years and recently have actually released him as he had no evidence of disease or recurrence. Currently, chest x- rays have again been completed and they show pneumonia, but no other masses or lymphadenopathy. We can certainly follow up with the patient again as an outpatient one more time just to make sure he has no residual issues from his treatment or his cancer. While he is in the hospital; however, we would not do any scans or do any further workup at this time. 2. Chronic obstructive pulmonary disease exacerbation. Continue current management per the primary team as well as per Pulmonology. 3. Acute respiratory failure. Again continue management per Pulmonology. 4. Coronary artery disease. Patient follows closely with Cardiology. We want to thank you for consulting us on Mr. Jose Luis Albarran while he is here at [facility]. We will continue follow along and adjust our treatment plan per his hospital course. Dictated by TITUS Cm for Bk Echols MD cc: MD Priyank Mckeon Jr, MD
[2019-03-08] MEDS: PRAVACHOL PO SCH (20:36)
[2019-03-09] MEDS: LEVAQUIN 750 MG/D5W 750 MG/150 ML IVPB IV SCH (01:54)
[2019-03-09] MEDS: ZOSYN 3.375 GM in NS 50 ML IV SCH ×4 (01:54→20:46)
[2019-03-09] MEDS: DUONEB (A & A) INH SCH ×6 (03:40→22:51)
[2019-03-09 05:13] LABS: BASO# 0.01 X1000 (0.0-0.2); BASO% 0.1 % (0.0-0.8); HEMATOCRIT 42.9 % (42.0-52.0); HEMOGLOBIN 12.5 g/dL (14.0-18.0); IMM GRAN% 0.7 % (0.0-0.5); LYMPH% 4.6 % (20.5-51.1); MCH 29.2 PG (27-31); MCHC 29.1 g/dL (33-37); MCV 100.2 FL (81-99); MONO# 0.63 X1000 (0.11-0.59); MONO% 4.1 % (1.7-9.3); MPV 8.4 FL (7.4-10.4); NEUT# 13.75 X1000 (1.4-6.5); NEUT% 90.5 % (42.2-75.2); PLT 394 X1000 (130-400); RBC 4.28 XMIL (4.7-6.1); RDW 14.8 % (11.5-14.5); WBC 15.19 X1000 (4.8-10.8)
[2019-03-09 05:35] LABS: ESTIMATED GFR > 60
[2019-03-09 05:45] LABS: AGAP 0; BUN 18 mg/dL (8-22); CALCIUM 8.4 mg/dL (8.8-10.2); CHLORIDE 96 mmol/L (98-107); COSMO 281; CREATININE 0.7 mg/dL (0.7-1.2); GLUCOSE 167 mg/dL (70-104); POTASSIUM 4.6 mmol/L (3.5-5.1); SODIUM 138 mmol/L (136-145); TCO2 42 mmol/L (25-35)
[2019-03-09] MEDS: VANCOMYCIN 1,600 MG in NS 250 ML IV SCH ×2 (05:51→18:08)
[2019-03-09 06:04] LABS: MONO 2 % (1-9); SEGS 96 % (42-75)
[2019-03-09] MEDS: PRILOSEC PO SCH (06:18)
[2019-03-09] MEDS: SOLU-MEDROL IV SCH ×3 (06:50→23:11)
[2019-03-09] MEDS: FLOMAX PO SCH (08:35)
[2019-03-09] MEDS: ASPIRIN PO SCH (08:35)
[2019-03-09] MEDS: BUSPAR PO SCH ×3 (08:35→20:46)
[2019-03-09] MEDS: LOVENOX SUBQ SCH (08:36)
[2019-03-09] MEDS: LOPRESSOR PO SCH (08:36)
[2019-03-09] MEDS: PRINIVIL PO SCH ×2 (08:36→20:46)
[2019-03-09] MEDS: DILANTIN PO SCH (08:37)
--- NOTE | 2019-03-09 09:48 | PROGRESS NOTE ---
DATE: 03/09/2019 SUBJECTIVE: The patient says he is coughing a lot though he did not cough I was in the room. He is still short of breath. He is sleeping on BiPAP. He has COPD and bronchitis. There was some question about a lingular infiltrate or pneumonia initially but that seems to have cleared. White count is over 15,000. The patient does appear somewhat nervous. OBJECTIVE: Vital signs: Blood pressure 132/81, respirations 19, pulse 109, temperature 98.9 degrees Fahrenheit. HEENT: He is normocephalic. EOMs intact. PERRLA. Throat clear. Lungs: Have some scattered wheezes and rales. Heart: Tachycardic without murmurs, gallops, friction rubs. Abdomen: Soft. Active bowel sounds. No organomegaly or tenderness. Neurologic: Intact grossly. ASSESSMENT: 1. Exacerbation of chronic obstructive pulmonary disease. 2. Lingular infiltrate, now clear. 3. History of methamphetamine abuse. 4. Tobacco addiction. 5. Coronary artery disease. PLAN: Continue support. The patient has been anxious and is talking about going home. He may be even considering going out against medical advice. I have recommended that he not do that and I have tried to encourage him to stay in the hospital which is where I think he needs to be. We will continue antibiotics for his bronchitis and chronic obstructive pulmonary disease exacerbation and previous lingular pneumonia. cc: Priyank Cortes Jr, MD
[2019-03-09] MEDS: NS 1,000 ML IV SCH (12:36)
[2019-03-09] MEDS: PRAVACHOL PO SCH (20:46)
--- NOTE | 2019-03-09 21:40 | PULMONOLOGY PROGRESS NOTE ---
DATE: 03/09/2019 SUBJECTIVE: The patient reports he is not getting cough medicine. He is tolerating p.o. intake. He reports his shortness of breath has diminished. OBJECTIVE: The patient has been afebrile over the last 24 hours. Blood pressure 128/73, heart rate 95, respiratory rate 22, oxygen saturation 100% on nasal cannula. HEENT: Pupils are equal and reactive. Oropharynx appears clear. Neck: Supple. Chest: Prolonged expiratory phase. Wheezing is decreasing. Cardiac: S1, S2. Abdomen: Soft. Extremities: Without edema. LABORATORIES: Sodium 136, potassium 4.6, chloride 96, bicarbonate 42, BUN 18, creatinine 0.7. White blood count 15.19, hemoglobin 12.5, platelet count 394,000. Microbiology: Sputum culture is pending. IMPRESSION: A 54-year-old with: 1. Chronic obstructive pulmonary disease exacerbation. 2. Acute hypoxemic respiratory failure. 3. Acute hypercapnic respiratory failure. 4. Ongoing nicotine addiction with tobacco use. 5. History of methamphetamine use. PLAN: 1. Continue current treatment regimen. 2. Continue oxygen and BiPAP p.r.n. 3. Encourage patient to discontinue all drugs and nicotine. 4. Anticipate transfer to the floor tomorrow. The patient continues to slowly improve. cc: MD Priyank Adam Jr, MD
[2019-03-10] MEDS: ZOSYN 3.375 GM in NS 50 ML IV SCH ×3 (01:21→14:04)
[2019-03-10] MEDS: LEVAQUIN 750 MG/D5W 750 MG/150 ML IVPB IV SCH (01:21)
[2019-03-10] MEDS: DUONEB (A & A) INH SCH ×6 (03:46→23:20)
[2019-03-10 06:13] LABS: HEMOGLOBIN 11.9 g/dL (14.0-18.0); IMM GRAN# 0.08 X1000 (0.0-0.04); IMM GRAN% 0.7 % (0.0-0.5); LYMPH# 0.73 X1000 (1.2-3.4); LYMPH% 6.7 % (20.5-51.1); MONO# 0.78 X1000 (0.11-0.59); MONO% 7.1 % (1.7-9.3); MPV 8.5 FL (7.4-10.4); NEUT# 9.36 X1000 (1.4-6.5); NEUT% 85.5 % (42.2-75.2); PLT 394 X1000 (130-400); RDW 14.7 % (11.5-14.5); WBC 10.95 X1000 (4.8-10.8)
[2019-03-10] MEDS: PRILOSEC PO SCH (06:14)
[2019-03-10] MEDS: VANCOMYCIN 1,600 MG in NS 250 ML IV SCH (06:14)
[2019-03-10 06:25] LABS: BUN 15 mg/dL (8-22); CALCIUM 8.3 mg/dL (8.8-10.2); CHLORIDE 98 mmol/L (98-107); COSMO 293; CREATININE 0.5 mg/dL (0.7-1.2); ESTIMATED GFR > 60; GLUCOSE 157 mg/dL (70-104); POTASSIUM 4.5 mmol/L (3.5-5.1); SODIUM 145 mmol/L (136-145); TCO2 49 mmol/L (25-35)
[2019-03-10] MEDS: SOLU-MEDROL IV SCH ×2 (07:45→16:08)
[2019-03-10] MEDS: NS 1,000 ML IV SCH (07:46)
[2019-03-10] MEDS: LOPRESSOR PO SCH (08:40)
[2019-03-10] MEDS: DILANTIN PO SCH (08:40)
[2019-03-10] MEDS: BUSPAR PO SCH ×3 (08:40→21:14)
[2019-03-10] MEDS: PRINIVIL PO SCH ×2 (08:40→21:14)
[2019-03-10] MEDS: ASPIRIN PO SCH (08:40)
[2019-03-10] MEDS: FLOMAX PO SCH (08:40)
[2019-03-10] MEDS: LOVENOX SUBQ SCH (08:47)
--- NOTE | 2019-03-10 09:56 | PROGRESS NOTE ---
DATE: 03/10/2019 SUBJECTIVE: The patient says he feels a little better. He is still wheezing, wants something for his cough. I will give him some Tessalon Perles. OBJECTIVE: Blood pressure is 132/84, respirations 20, pulse 105, temp 98 degrees Fahrenheit. Oxygen saturation on 3 L is 96%.HEENT: Normocephalic. EOMs intact. PERRLA. Throat clear. Lungs: Have scattered wheezes. Heart: Tachycardic without murmurs, gallops, friction rubs. Abdomen: Soft. Active bowel sounds. No organomegaly or tenderness. DATA: Microbiology did show 1 blood culture that grew coagulase negative Staph coccus. Other blood culture was negative. This is probably contaminant but we do have him on antibiotics. White count is down to 10,950, hemoglobin 11.9. ASSESSMENT: 1. Hypoxic respiratory distress. 2. Exacerbation of chronic obstructive pulmonary disease. 3. One positive blood culture. Questionable contaminant. PLAN: Will move to the floor and continue treatment with BiPAP at night. cc: Priyank Cortes Jr, MD
[2019-03-10] MEDS: TESSALON PO SCH ×2 (12:47→16:08)
[2019-03-10] MEDS ORDERED: PREDNISONE PO ONE (21:08)
[2019-03-10] MEDS: PRAVACHOL PO SCH (21:14)
[2019-03-11] MEDS: DUONEB (A & A) INH SCH ×6 (03:45→23:21)
[2019-03-11 04:57] LABS: ALLEN TEST YES; BE 19.1 mmoll (-3.0-3.0); BLOOD TYPE ARTERIAL; HCO3-(ACT) 39.8 mmoll (20.0-26.0); METHB 1.4 % (0.0-1.5); O2(CT) 16.4 mL/dL (15.0-23.0); O2HB 96.5 % (95.0-99.0); PO2(98.6) 141 mmHg (60-100); SAMPLE BLOOD; SAO2 99.1 % (95.0-100.0); THB 11.9 g/dL (11.5-17.4)
[2019-03-11 04:58] LABS: MODALITY BI PAP
[2019-03-11 05:01] LABS: PCO2(98.6) 77 mmHg (35-45)
--- NOTE | 2019-03-11 06:15 | PULMONOLOGY PROGRESS NOTE ---
DATE: 03/10/2019 SUBJECTIVE: The patient is awake, alert, and conversant. He reports he feels better. He feels that he could go home if he were given antibiotics and a cough suppressant. He is aware that he needs to stop smoking. OBJECTIVE: The patient has been afebrile for the last 24 hours. Blood pressure 122/74, heart rate 72, respiratory rate 16, and oxygen saturation 96%.HEENT: Pupils are equal and reactive. Oropharynx appears clear. Neck: Supple. Lungs: Chest reveals prolonged expiratory phase with decreased wheezing. Cardiac: S1-S2. Abdomen: Soft. Extremities: Without edema. LABORATORIES: Microbiology reveals normal yung on sputum. Sodium 145, potassium 4.5, chloride 98, bicarbonate 49, BUN 15, and creatinine 0.5. IMPRESSION: A 54-year-old with: 1. Chronic obstructive pulmonary disease exacerbation. 2. Acute hypoxemic respiratory failure. 3. Acute hypercapnic respiratory failure. 4. Ongoing nicotine addiction with tobacco use. 5. History of methamphetamine. PLAN: 1. Consolidate drug regimen. Cultures are negative. 2. Continue oxygen and BiPAP. 3. Transition to oral steroids. 4. Continue to educate about the importance of smoking cessation. cc: MD Priyank Adam Jr, MD
[2019-03-11 06:39] LABS: HEMATOCRIT 41.6 % (42.0-52.0); HEMOGLOBIN 12.2 g/dL (14.0-18.0); IMM GRAN# 0.06 X1000 (0.0-0.04); IMM GRAN% 0.6 % (0.0-0.5); LYMPH% 8.4 % (20.5-51.1); MCH 29.3 PG (27-31); MCHC 29.3 g/dL (33-37); MCV 99.8 FL (81-99); MONO# 0.89 X1000 (0.11-0.59); MONO% 9.3 % (1.7-9.3); MPV 8.4 FL (7.4-10.4); NEUT# 7.78 X1000 (1.4-6.5); NEUT% 81.7 % (42.2-75.2); PLT 435 X1000 (130-400); RBC 4.17 XMIL (4.7-6.1); RDW 15.1 % (11.5-14.5); WBC 9.53 X1000 (4.8-10.8)
[2019-03-11] MEDS: PRILOSEC PO SCH (06:47)
[2019-03-11 07:27] LABS: AGAP 7; BUN 15 mg/dL (8-22); CALCIUM 8.7 mg/dL (8.8-10.2); CHLORIDE 95 mmol/L (98-107); COSMO 289; CREATININE 0.7 mg/dL (0.7-1.2); ESTIMATED GFR > 60; GLUCOSE 155 mg/dL (70-104); POTASSIUM 4.5 mmol/L (3.5-5.1); SODIUM 143 mmol/L (136-145); TCO2 41 mmol/L (25-35)
--- NOTE | 2019-03-11 08:53 | PROGRESS NOTE ---
DATE: 03/11/2019 SUBJECTIVE: The patient says he feels a little bit better. Still feels like he cannot cough everything up. OBJECTIVE: Vital Signs: Blood pressure 153/78, respirations 18, pulse 107, temperature 98.6 degrees Fahrenheit. Oxygen saturation with nasal cannula is 97%; when he is on BiPAP it is 100%. HEENT: Normocephalic. EOMS intact. PERRLA. Throat clear. Lungs: Sound fairly clear this morning. Heart: Regular rate and rhythm to sinus tachycardia without murmurs, gallops or friction rubs. Abdomen: Soft. Active bowel sounds. No organomegaly or tenderness. Neurological: Exam intact grossly. LABS: White count is 9530, hemoglobin 41.6. Blood gas this morning shows a pH of 7.40 with a pCO2 of 77 and a PO2 of 141, and that was on BiPAP. Electrolytes essentially normal. Patient is eager to go home. We will try to get him set up with the BiPAP at home, perhaps discharge tomorrow if stable. Would like Dr. Hernandez's opinion. The patient has been changed over to oral steroids. I think if he does well today and he is on oral antibiotics and we can get his BiPAP set up for home, we will let him go home tomorrow. I have strongly encouraged him not to smoke. ASSESSMENT: 1. Exacerbation of chronic obstructive pulmonary disease. 2. Hypoxic respiratory arrest. 3. Acidosis. PLAN: As above. cc: Priyank Cortes Jr, MD
[2019-03-11] MEDS: TESSALON PO SCH ×3 (11:04→18:55)
[2019-03-11] MEDS: FLOMAX PO SCH (11:05)
[2019-03-11] MEDS: PREDNISONE PO SCH (11:05)
[2019-03-11] MEDS: LEVAQUIN PO SCH (11:05)
[2019-03-11] MEDS: BUSPAR PO SCH ×2 (11:05→16:00)
[2019-03-11] MEDS: ASPIRIN PO SCH (11:05)
[2019-03-11] MEDS: LOVENOX SUBQ SCH ×2 (11:06→11:14)
[2019-03-11] MEDS: LOPRESSOR PO SCH (11:06)
[2019-03-11] MEDS: PRINIVIL PO SCH (11:06)
--- NOTE | 2019-03-11 22:39 | PULMONOLOGY PROGRESS NOTE ---
DATE: 03/11/2019 SUBJECTIVE: The patient is awake, alert, and conversant. He reports he feels better today. OBJECTIVE: Vital signs: He is currently saturating 98% on 3 L per nasal cannula. HEENT: Pupils are equal and reactive. Oropharynx appears clear. Neck: Supple. Chest: Reveals prolonged expiratory phase without wheezing or rhonchi. Cardiac exam: S1, S2. Abdomen: Soft. Extremities: Without edema. LABORATORIES: Arterial blood gas reveals a pH of 7.40, pCO2 of 77, pO2 of 141. IMPRESSION: A 54-year-old with: 1. Chronic obstructive pulmonary disease exacerbation with continued improvement. 2. Acute hypoxemic and acute hypercapnic respiratory failure. 3. Ongoing tobacco use/nicotine addiction. 4. History of methamphetamine. DISCUSSION: A 54-year-old with problems outlined above. Clinically he has improved and is doing well today off of BiPAP. There is a question of discharge with BiPAP. Unfortunately, patient already has a CPAP device, which has been prescribed by Dr. Ashley. The patient will need to be re-evaluated by Dr. Ashley as an outpatient to see if he can be transitioned from a CPAP machine to a BiPAP machine. He may qualify if obstructive sleep apnea can be ruled out. His pCO2 is greater than 55, which is one of the Medicare requirements. PLAN: 1. Follow up with Dr. Ashley as an outpatient to see if his CPAP can be transitioned to a BiPAP. 2. Daily education on the importance of smoking cessation. 3. Continue oxygen at discharge. 4. Recommend tapering steroids over 14 days. 5. Complete 7 to 10 day course of antibiotics. 6. Anticipate discharge tomorrow. cc: MD Priyank Adam Jr, MD
[2019-03-12] MEDS: PRINIVIL PO SCH ×2 (00:57→10:04)
[2019-03-12] MEDS: PRAVACHOL PO SCH (00:57)
[2019-03-12] MEDS: BUSPAR PO SCH ×2 (00:57→10:03)
[2019-03-12] MEDS: DILANTIN PO SCH ×2 (00:57→10:02)
[2019-03-12] MEDS: DUONEB (A & A) INH SCH ×3 (03:32→11:09)
[2019-03-12] MEDS: PRILOSEC PO SCH ×2 (05:47→06:53)
[2019-03-12 07:32] VITALS: BP 127/72
[2019-03-12] MEDS: FLOMAX PO SCH (10:02)
[2019-03-12] MEDS: LOPRESSOR PO SCH (10:03)
[2019-03-12] MEDS: ASPIRIN PO SCH (10:03)
[2019-03-12] MEDS: LEVAQUIN PO SCH (10:03)
[2019-03-12] MEDS: LOVENOX SUBQ SCH ×2 (10:04→11:28)
[2019-03-12] MEDS: PREDNISONE PO SCH (10:04)
[2019-03-12] MEDS: TESSALON PO SCH (10:04)
--- NOTE | 2019-03-13 09:37 | DISCHARGE SUMMARY ---
ADMISSION DATE: 03/07/2019 DISCHARGE DATE: 03/12/2019 FINAL DIAGNOSES: 1. Respiratory distress and failure with hypoxemia. 2. Acidosis. 3. Lingular pneumonia, now resolved. 4. Chronic obstructive pulmonary disease. 5. Coronary artery disease. 6. History of lung cancer. 7. Hypertension. 8. Depression. 9. Gastroesophageal reflux disease. 10. Anxiety. 11. Seizure disorder. 12. Hyperlipidemia. 13. Benign prostatic hypertrophy. 14. History of methamphetamine abuse. DISCHARGE INSTRUCTIONS: Discharge on home medications plus Levaquin 500 mg daily for 10 days and prednisone 40 mg tapering over 16 days. The patient will follow up with me in the next week and with his regular geospatial information scientist Dr. Ashley. He has CPAP at home which could be transitioned to BiPAP. He will have to talk to Dr. Ashley about this, or just continue to use his CPAP when he is short of breath. I have encouraged him strongly to quit tobacco use and methamphetamine use. HISTORY OF PRESENT ILLNESS: The patient is a 54-year-old who continues to smoke with lung cancer. Has a history of sleep apnea, seizure disorder, and tobacco use. He came to hospital with shortness of breath. Had a pH of 7.24, pCO2 of 113, pO2 of 150. He was placed on BiPAP. He slowly got better with antibiotics, steroids and breathing treatments. The patient takes breathing treatments at home, which he will continue. He had what looked like a lingular infiltrate that resolved by the 2nd chest x-ray, so it was probably a mild infection that opened up, and then we were treating his COPD. The patient's Dilantin level was low. He said he had been missing his medicine. Has not had a seizure. Have recommended he get back on his medication. The patient also has a history of coronary artery disease. PHYSICAL EXAMINATION: General: He is a well-developed, thin white male who is feeling much better. HEENT: Normocephalic. EOMs intact. PERRLA. Throat clear. Lungs: Sound clear to auscultation and percussion without rhonchi, rales, or wheezes. He does have oxygen at home. Heart: Regular rate and rhythm without murmurs, gallops, friction rubs. Abdomen: Soft. Active bowel sounds. No organomegaly or tenderness. Neurologic: Exam intact grossly. Vital Signs: Blood pressure 127/72, respirations 20, pulse 103, temperature 98.2 degrees Fahrenheit. DISPOSITION: Will discharge home with the above medications and his home medications. cc: Priyank Cortes Jr, MD
== END 2019-03-12 12:47 | disposition home health service (06) | DRG 189 ==
LOC: SUPCPDRO → ED 20:49 → ICU 03-07 00:37 → SUATTDRO 03-07 00:37 → 4N 03-10 11:36
PROVIDERS: ADMIT Emergency Medicine; ATTEND Emergency Medicine

== ENCOUNTER 2019-07-15 16:01 | Inpatient (IN) ==
[2019-07-15] MEDS ORDERED: DUONEB (A & A) INH ONE (16:24)
--- NOTE | 2019-07-15 16:34 | PROVIDER DOCUMENTATION ---
HPI-General Adult - General Chief Complaint: SEPSIS ALERT Stated Complaint: LEGS SWOLLEN AND RED Time Seen by Provider: 07/15/19 16:17 Source: patient Allergies/Adverse Reactions: Patient Allergies Allergy/AdvReac Type Severity Reaction Status Date / Time codeine Allergy Mild RASH Verified 12/09/18 13:49 aripiprazole [From Abilify] AdvReac Unknown RASH Verified 12/09/18 13:49 clonazepam [From Klonopin] AdvReac Unknown RASH Verified 12/09/18 13:49 quetiapine fumarate * AdvReac Unknown RASH Verified 12/09/18 13:49 [From Seroquel] Home Medications: Home Medication List Medication Instructions Recorded Confirmed Last Taken Type Ipratropium/Albuterol INH 2 puff INH RTQ6H PRN 04/28/13 03/07/19 08/03/14 History [Combivent Respimat Inhaler] PRAVAstatin [Pravachol] 80 mg PO HS 04/28/13 03/07/19 08/03/14 History Phenytoin [Dilantin] 600 mg PO DAILY 04/28/13 03/07/19 08/03/14 History Albuterol [Albuterol Neb] 1 dose INH Q6H PRN PRN 10/12/13 03/07/19 08/02/14 History Nebulizer and Compressor 1 unit INH Q6H PRN 10/12/13 03/07/19 07/03/14 10:30 History [Inspiration Elite Nebulizer] Buspirone [Buspar] 30 mg PO TID 12/09/18 03/07/19 Unknown History Metoprolol Tartrate 25 mg PO QAM 12/09/18 03/07/19 Unknown History Omeprazole 40 mg PO QAM 12/09/18 03/07/19 Unknown History Tamsulosin [Flomax] 0.4 mg PO QAM 12/09/18 03/07/19 Unknown History Escitalopram [Lexapro] 20 mg PO DAILY 03/07/19 03/07/19 Unknown History Lisinopril 10 mg PO BID 03/07/19 03/07/19 Unknown History Benzonatate [Tessalon Perle] 200 mg PO TID #30 cap 03/12/19 Unknown Rx Levofloxacin 500 mg PO DAILY #10 tab 03/12/19 Unknown Rx - History of Present Illness -Gen Adult Nature of Presenting Problems: Patient comes in with increasing shortness of breath. He has known COPD and is home O2 at 3 liters and continues to use tobacco. He has cut back from 3 packs to 1 PPD. Pt has also has a history of lung CA S/P treatment. He also complains of swelling and pain in his lower extremities that started 2 days ago. He is having pain associated with this. He is clearly winded as he try to walk from the wheel chair to the stretcher. Review of Systems - Adult - REVIEW OF SYSTEMS - ADULT Constitutional: reports: see HPI, fatique. denies: chills, fever, night sweats Eyes: reports: no symptoms reported. denies: discharge, dry eyes, decreased vision, blurred vision, double vision Ears, Nose, Mouth & Throat: reports: no symptoms reported. denies: ear discharge, ear pain, tinnitus, epistaxis, sinus problem, loose teeth, mouth/dental pain, hoarseness, throat swelling Cardiovascular: reports: see HPI, edema. denies: chest pain, heart murmur, irregular heart rate, palpitations Respiratory: reports: see HPI, chronic cough, dyspnea on exertion, shortness of breath. denies: excessive sputum production, hemoptysis, pleurisy, wheezing Gastrointestinal: reports: no symptoms reported. denies: abdominal pain, hematemesis, constipation, diarrhea, difficulty swallowing, nausea, rectal bleeding, vomiting Genitourinary: reports: no symptoms reported. denies: dysuria, discharge, frequency, flank pain, frequent UTI's, hematuria, incontinence, urinary retention, urgency Musculoskeletal: reports: no symptoms reported. denies: bone pain, back pain, frequent leg cramps, joint pain, joint swelling, muscle aches, muscle weakness Integumentary: reports: no symptoms reported. denies: hives, hair loss, itching, mole changes, rash, skin sores/ulcer Neurological: reports: no symptoms reported. denies: ataxia, dizziness/vertigo, headache/migraines, paresthesia, seizure, slurred speech, syncope Psychiatric: reports: no symptoms reported. denies: anxiety, anti-depressant use, alcohol/drug dependence, depression, insomnia, panic attacks, suicidal th oughts Endocrine: reports: no symptoms reported. denies: change in skin pigment, excessive sweating, cold intolerance, increased hunger, increased thirst, polyuria Hematologic/Lymphatic: reports: no symptoms reported. denies: blood clots, easy bruising, low blood count, lymphedema, prolonged bleeding, swollen lymph nodes, transfusions Allergic/Immunologic: reports: no symptoms reported. denies: allergic reactions, allergic rhinitis, asthma, food allergy, frequent infections, hay fever, hives, positive PPD, urticaria All Other Systems: Reviewed and Negative Past History - Adult - PAST MEDICAL HISTORY-ADULT Review of Records: reports: Old Records Reviewed, Nursing Assessment Review, Med ications Reviewed, Social history reviewed & non-contributory. Major Childhood Illnesses: reports: history unknown Cardiovascular: reports: CAD, HTN, hyperlipidemia, [place] Respiratory: reports: asthma, COPD, cancer (lung), sleep apnea Gastrointestinal: reports: GERD Obstetrical/Gynecological: reports: denies history Genitourinary: reports: denies history Musculoskeletal: reports: denies history Neurological: reports: CVA, Seizures/Epilepsy (last episode was ), TIA Endocrine/Immune: reports: denies history Other Conditions: reports: other (SLEEP APNEA) - PRIOR SURGERIES/PROCEDURES Surgical/Procedure History: reports: cholecystectomy, joint replacement (TOTAL KNEE ), other (hemorrhoidectomy) - PRIOR HOSPITALIZATIONS Prior Hospitalizations: reports: none - IMMUNIZATION STATUS Childhood Immunizations: See Nurse Assessment Flu Vaccine: UTD - FAMILY HISTORY Family History: reviewed, not pertinent - SOCIAL HISTORY Smoking: greater than 1 pack/day Provider spent 3-5 mins advising pt. on dangers of tobacco.: Discussed manners to quit use, and f/u contacts for add'l counseling. Substance Use: none/never Alcohol Use Frequency: never Living Situation: family Physical Exam-General - PHYSICAL EXAM-ADULT Initial Vital Signs Reviewed: Yes - CONSTITUTIONAL General Appearance: alert, no apparent distress, moderate distress, thin - EYES Eyes: PERRL/EOMI, pink conjunctivae - HEAD, EARS, NOSE, MOUTH & THROAT HENMT: normocephalic/atraumatic, moist mucous membranes, frontal tenderness, maxillary tenderness - NECK Neck: non-tender, full range of motion, supple - RESPIRATORY Respiratory: chest non-tender, decreased breath sounds, rales, wheezing, prolonged expiration, increased rate - CARDIOVASCULAR Cardiovascular: normal peripheral pulses, no murmur, tachycardia. negative: no edema - GASTROINTESTINAL (ABDOMEN) Abdominal Exam: normal bowel sounds, non tender, soft, no organomegaly, no pulsatile mass - LYMPHATIC Lymphatic: no adenopathy - MUSCULOSKELETAL Back Exam: normal inspection, no CVA tenderness Extremity: normal range of motion, non-tender, erythema - SKIN Integumentary: normal turgor, warm/dry, erythema, swelling - NEUROLOGIC Neurologic: clinical services professional II-XII nml as tested, grossly normal - PSYCHIATRIC Psych/Mental Status: normal mood/affect, normal thought content, normal thought process, oriented x 3 Progress - PLAN OF CARE/RESULTS Progress/Plan/Lab Results: Vital Signs - 8 hr 07/15/19 16:06 Temperature 98.2 F Pulse Rate 109 H Respiratory Rate 26 H Blood Pressure 120/73 O2 Sat by Pulse Oximetry 88 L Orders Category Date Time Status Cardiac Monitoring NOW Care 07/15/19 16:11 Active IV Insertion NOW Care 07/15/19 16:11 Active NEWS Score >or=5:Order NEWS Bundle S.O. NOW Care 07/15/19 16:10 Active Notify Provider of NEWS Score NOW Care 07/15/19 16:11 Active CHEST-1 VIEW [RAD] Stat Exams 07/15/19 16:11 Ordered ABG [RESP] Stat Lab 07/15/19 16:23 Ordered BLOOD CULTURE [BLDCUL] Stat Lab 07/15/19 16:11 Uncollected CBC WITH DIFF [HEME] Stat Lab 07/15/19 16:11 Uncollected CK PROFILE [SP CHEM] Stat Lab 07/15/19 16:11 Uncollected COMPREHENSIVE METABOLIC PANEL [CHEM] Stat Lab 07/15/19 16:11 Uncollected LACTATE, PLASMA [CHEM] Q3H Lab 07/15/19 16:15 Uncollected LACTATE, PLASMA [CHEM] Q3H Lab 07/15/19 19:15 Uncollected LACTATE, PLASMA [CHEM] Q3H Lab 07/15/19 22:15 Uncollected PROTIME WITH INR [COAG] Stat Lab 07/15/19 16:11 Uncollected PTT [COAG] Stat Lab 07/15/19 16:11 Uncollected TROPONIN T HIGH SENSITIVITY Stat Lab 07/15/19 16:11 Uncollected URINALYSIS W/POSS RFLX CULT [URINALYSIS] Stat Lab 07/15/19 16:11 Uncollected Albuterol 2.5MG/Ipratrop 0.5MG [Duoneb (A & A)] Med 07/15/19 16:24 Once 3 ml INH NOW ONE Aerosol Treatments Routine Oth 07/15/19 16:24 Ordered Aerosol Treatments Stat Ot 07/15/19 16:24 Ordered O2 Per Protocol Stat Ot 07/15/19 16:11 Active Result Diagrams: 07/15/19 15:35 07/15/19 15:35 - XRAY 1 XRAY Study: Chest (FINDINGS: There is severe COPD. There is some strandy atelectasis or infiltrate at the inferior left hilum. No pneumothorax or pleural effusion. Heart size is normal. IMPRESSION: Strandy atelectasis or infiltrate at the left hilum.) Impression: See EMR Report - CONSULTS/PCP/HOSPITALIST Notification #1 *Consult/PCP/Hospitalist*: varsha Time Discussed: 17:43 Reason/Comments: pna Consult Disposition: Admit Departure - Departure Date of Disposition Decision: 07/15/19 Time of Disposition Decision: 17:41 DIAGNOSIS: COPD exacerbation Pneumonia Qualifiers: Pneumonia type: due to unspecified organism Laterality: left Lung location: unspecified part of lung Qualified Code(s): J18.9 - Pneumonia, unspecified organism Disposition: ADMITTED INPATIENT 09 Certified Medical Emergency: Emergent Condition: Fair - Critical Care Note This patient required my direct & personal management of CC.: No Attestation - Physician/ RAMIN Attestation Patient care was provided by Advanced Practice Provider:: Yes Advanced Practice Provider:: Guicho Mclain Advanced Practice Provider documentation review:: The Mid-level provider documentation, treatment plan and medical decision making was reviewed by the physician who agrees with all treatment and medical decision making by the MLP. The physician spent face to face time with patient:: No Advanced Practice Provider documentation review:: Supervising physician onsite and consulted in the evaluation and care of this patient. The physician did not have a face to face encounter with the patient.
--- NOTE | 2019-07-15 16:45 | Diag Imaging Result Doc PS360 ---
CHEST-1 VIEW - 07/15/2019 INDICATION: sob COMPARISON: 03/08/2019 FINDINGS: There is severe COPD. There is some strandy atelectasis or infiltrate at the inferior left hilum. No pneumothorax or pleural effusion. Heart size is normal. IMPRESSION: Strandy atelectasis or infiltrate at the left hilum. Electronically signed by Shaan Low 07/15/2019 4:42 PM
[2019-07-15 16:50] LABS: ALLEN TEST YES; BLOOD TYPE ARTERIAL; HCO3-(ACT) 34.9 mmoll (20.0-26.0); METHB 1.2 % (0.0-1.5); O2(CT) 17.9 mL/dL (15.0-23.0); O2HB 92.9 % (95.0-99.0); PO2(98.6) 109 mmHg (60-100); SAMPLE BLOOD; SAO2 99.6 % (95.0-100.0); THB 13.6 g/dL (11.5-17.4); pH(98.6) 7.38 (7.35-7.45)
[2019-07-15 16:54] LABS: PCO2(98.6) 70 mmHg (35-45)
[2019-07-15 16:55] LABS: MODALITY CANNULA
[2019-07-15] MEDS ORDERED: MORPHINE IV ONE (17:07)
[2019-07-15] MEDS ORDERED: ZOFRAN IV ONE (17:08)
[2019-07-15 17:12] LABS: BASO# 0.02 X1000 (0.0-0.2); BASO% 0.3 % (0.0-0.8); EOS# 0.36 X1000 (0.0-0.7); EOS% 5.2 % (0.0-10.0); HEMATOCRIT 44.1 % (42.0-52.0); HEMOGLOBIN 13.4 g/dL (14.0-18.0); LYMPH# 1.39 X1000 (1.2-3.4); MCH 29.3 PG (27-31); MCHC 30.4 g/dL (33-37); MCV 96.5 FL (81-99); MONO# 0.98 X1000 (0.11-0.59); MONO% 14.1 % (1.7-9.3); MPV 8.9 FL (7.4-10.4); NEUT# 4.21 X1000 (1.4-6.5); NEUT% 60.4 % (42.2-75.2); PLT 236 X1000 (130-400); RBC 4.57 XMIL (4.7-6.1); RDW 13.4 % (11.5-14.5); WBC 6.96 X1000 (4.8-10.8)
[2019-07-15 17:14] LABS: URINE SOURCE CLEAN CATCH
[2019-07-15 17:16] LABS: INR 0.86; PROTIME 11.8 Seconds (11.0-16.0)
[2019-07-15 17:17] LABS: PTT 24.5 Seconds (22.3-41.8)
[2019-07-15] MEDS ORDERED: SOLU-MEDROL IV ONE (17:17)
[2019-07-15] MEDS ORDERED: ROCEPHIN 1 GM in NS 50 ML IV ONE (17:17)
[2019-07-15] MEDS ORDERED: ZITHROMAX 500 MG/NS 500 MG/250 ML IVPB IV ONE (17:17)
[2019-07-15 17:19] LABS: BILIRUBIN URINE NEGATIVE (NEGATIVE); BLOOD URINE NEGATIVE (NEGATIVE); COLOR YELLOW; GLUCOSE URINE NEGATIVE (NEGATIVE); KETONE URINE NEGATIVE (NEGATIVE); LEUKOCYTES URINE NEGATIVE (NEGATIVE); NITRITE URINE NEGATIVE (NEGATIVE); PROTEIN URINE 30 mg/dL (NEGATIVE); SP GRAVITY URINE 1.032; TURBIDITY URINE CLEAR (CLEAR); UR EPITHELIAL CELLS <10 /HPF (<10); URINE BACTERIA NEGATIVE /HPF; URINE RBC <10 /HPF (<10); URINE WBC <10 /HPF (<10); UROBILINOGEN URINE 2 mg/dL (NORMAL)
[2019-07-15] MEDS ORDERED: ZOSYN 3.375 GM in NS 50 ML IV ONE (17:26)
[2019-07-15 17:31] LABS: AGAP 9; ALB/GLOB RATIO 1.3; ALBUMIN 3.7 g/dL (3.5-5.0); ALKALINE PHOSPHATASE 83 U/L (32-122); BUN 17 mg/dL (8-22); CALCIUM 8.8 mg/dL (8.8-10.2); CHLORIDE 96 mmol/L (98-107); CK PROFILE 115 U/L (24-204); COSMO 291; CREATININE 0.8 mg/dL (0.7-1.2); ESTIMATED GFR > 60; GLUCOSE 111 mg/dL (70-104); GOT 37 U/L (10-34); GPT 26 U/L (10-44); POTASSIUM 4.5 mmol/L (3.5-5.1); SODIUM 145 mmol/L (136-145); TCO2 40 mmol/L (25-35); TOTAL BILIRUBIN 0.19 mg/dL (0.20-1.00); TOTAL PROTEIN 6.5 g/dL (6.3-8.3)
[2019-07-15] MEDS ORDERED: VANCOMYCIN IV PER PHARMACY MISC SCH (18:51)
[2019-07-15] MEDS ORDERED: TYLENOL PO PRN (18:51)
[2019-07-15] MEDS: NS 1,000 ML IV SCH (19:58)
[2019-07-15] MEDS: FLOMAX PO SCH (20:00)
[2019-07-15] MEDS: BUSPAR PO SCH (20:00)
[2019-07-15] MEDS: TESSALON PO SCH (20:00)
[2019-07-15] MEDS: PRAVACHOL PO SCH (20:00)
[2019-07-15] MEDS: LOVENOX SUBQ SCH (20:01)
[2019-07-15] MEDS ORDERED: VANCOMYCIN 1,650 MG in NS 250 ML IV ONE (21:00)
[2019-07-15] MEDS: LOPRESSOR PO SCH (21:19)
[2019-07-15] MEDS: DILANTIN PO SCH (21:19)
--- NOTE | 2019-07-15 21:41 | HISTORY AND PHYSICAL ---
CHIEF COMPLAINT: Shortness of breath. Bilateral leg swelling. Mr. Albarran 54-year-old gentleman patient of Dr. Cortes was in his usual state of health 2 days ago. The patient was complaining of increasing swelling both the legs. Also redness in both the legs. Patient did have fever and chills. The patient was concerned about infection. The patient was also complaining of increasing cough, chest congestion, fever, shortness of breath. The patient came to the emergency room, evaluated by ER physician. Workup in the ER did reveal possible pneumonia at the left hilum, patient had redness both the legs suggestive of cellulitis. His CBC did reveal WBC count 6.96, hemoglobin 13.4, hematocrit 44.1, platelet count 236,000. Patient did have hypercarbic respiratory failure and ER physician decided to admit patient for further care. The patient was complaining of feeling fatigued, tired, no energy. He also had some chest pain, more pain with coughing and deep breathing. The patient had history of lung cancer. He was getting radiation. Unquantified weight loss. Oral intake was poor. No hemoptysis. Denied any typical chest pain or palpitation. No diarrhea, blood or mucus in the stool. Oral intake was variable. Patient is noncompliant to followup. Denied any dysuria or hematuria. The patient does have constipation, no blood or mucus in the stool, unquantified weight loss. No hemoptysis. No further history available at this time. ALLERGIES: codeine, Abilify, Klonopin, Seroquel. PAST MEDICAL HISTORY: COPD, history of lung cancer status post radiation treatment, seizure disorder, coronary artery disease, anxiety and depression, BPH, dyslipidemia, hypertension, diabetes, gastritis and reflux disease, history suggestive of stroke, patient had a cholecystectomy, hemorrhoidectomy. FAMILY HISTORY: Positive for lung cancer, diabetes and asthma. SOCIAL HISTORY: Notable for ongoing alcohol, drug and tobacco use. REVIEW OF SYSTEMS: Significant for unquantified weight loss, weakness, notable for cough. No recent seizure-type episode. PHYSICAL EXAMINATION: Middle-aged white gentleman who does look older for his age in mild distress. VITAL SIGNS: Blood pressure 121/77, pulse 102, respiration 22, temperature 98.1 degrees. SKIN: Senile turgor. Head atraumatic, normocephalic. [place] conjunctivae. Anicteric sclerae. Extraocular muscle movement normal. Fundus cannot be penetrated. Good oral hygiene. No tonsillopharyngeal congestion or exudate. Ears and nose benign. NECK: Supple. No JVD, thyromegaly or lymphadenopathy. CHEST: Bibasilar crepitation. Occasional wheezing. CARDIOVASCULAR: S1 and S2 heard. No gallop or thrill. ABDOMEN: Soft, nontender. Bowel sounds present. EXTREMITIES: No cyanosis, clubbing. No acute DVT. The patient does have bilateral leg swelling with some the redness in the lower legs. No acute DVT. TELEVISION SERVICER: Alert, awake, able to move all 4 limbs. CONSIDERATION: 1. Bilateral leg swelling with some redness in the leg suggestive of cellulitis. 2. Chest x-ray suggestive of pneumonia in the lingular area on the left hilum. 3. History of lung cancer status post radiation treatment. 4. Seizure disorder, hypertension, benign prostatic hypertrophy, weight loss, constipation, patient lab data noted. PLAN: Admit patient. IV antibiotics. Close observation. Pain management. His blood gas revealed hypercarbic respiratory failure. Encouraged patient to quit smoking. Dr. Cortes will see patient in the morning. cc: Jeffrey Wilkes MD
[2019-07-15] MEDS ORDERED: DUONEB (A & A) INH SCH (22:00)
[2019-07-15] MEDS: DUONEB (A & A) INH SCH (22:30)
[2019-07-16] MEDS: SOLU-MEDROL IV SCH ×3 (01:23→18:29)
[2019-07-16] MEDS: ZOSYN 3.375 GM in NS 50 ML IV SCH ×5 (01:23→23:38)
[2019-07-16] MEDS: DUONEB (A & A) INH SCH ×4 (05:09→21:15)
[2019-07-16 05:52] LABS: BASO# 0.01 X1000 (0.0-0.2); BASO% 0.1 % (0.0-0.8); EOS# 0.01 X1000 (0.0-0.7); EOS% 0.1 % (0.0-10.0); HEMATOCRIT 40.6 % (42.0-52.0); HEMOGLOBIN 12.2 g/dL (14.0-18.0); LYMPH# 0.72 X1000 (1.2-3.4); LYMPH% 10.2 % (20.5-51.1); MCH 29.3 PG (27-31); MCV 97.6 FL (81-99); MONO# 0.27 X1000 (0.11-0.59); MONO% 3.8 % (1.7-9.3); MPV 8.5 FL (7.4-10.4); NEUT# 6.03 X1000 (1.4-6.5); NEUT% 85.8 % (42.2-75.2); PLT 212 X1000 (130-400); RBC 4.16 XMIL (4.7-6.1); RDW 13.1 % (11.5-14.5); WBC 7.04 X1000 (4.8-10.8)
[2019-07-16 06:00] LABS: AGAP 6; ALB/GLOB RATIO 1.1; ALBUMIN 3.1 g/dL (3.5-5.0); ALKALINE PHOSPHATASE 69 U/L (32-122); BUN 18 mg/dL (8-22); CALCIUM 8.3 mg/dL (8.8-10.2); CHLORIDE 99 mmol/L (98-107); COSMO 285; CREATININE 0.7 mg/dL (0.7-1.2); ESTIMATED GFR > 60; GLUCOSE 130 mg/dL (70-104); GOT 27 U/L (10-34); GPT 21 U/L (10-44); POTASSIUM 5.3 mmol/L (3.5-5.1); SODIUM 141 mmol/L (136-145); TCO2 36 mmol/L (25-35); TOTAL BILIRUBIN 0.21 mg/dL (0.20-1.00)
[2019-07-16 06:21] LABS: LYMPHS 11 % (21-51); MONO 3 % (1-9); SEGS 86 % (42-75)
[2019-07-16] MEDS: PRILOSEC PO SCH (06:29)
[2019-07-16] MEDS: TESSALON PO SCH ×3 (06:29→21:10)
[2019-07-16] MEDS: MORPHINE IV PRN ×3 (06:30→20:08)
[2019-07-16] MEDS ORDERED: PROTONIX PO SCH (07:00)
--- NOTE | 2019-07-16 09:37 | PROGRESS NOTE ---
DATE: 07/16/2019 SUBJECTIVE: The patient says he is feeling a little bit better. The swelling in his legs has gone down. There is still a little redness there. There may be some cellulitis. He said he had swelling of his legs up to his knees for a couple of days. He has had coronary artery disease in the past, but has not had congestive heart failure. He came in with hypercapnia with pCO2 of 70. He does have COPD. His breathing is better. He had what looks like either atelectasis or an infiltrate in the lingula. OBJECTIVE: Blood pressure 102/60, respirations 20, pulse 93, and temperature 97.7 degrees Fahrenheit.HEENT: Normocephalic. EOMS intact. PERRLA. Throat clear. Lungs: Sound fairly clear to auscultation without rhonchi, rales, or wheezes. Heart: Regular rate and rhythm without murmurs, gallops, or friction rubs. Abdomen: Soft with active bowel sounds. No organomegaly or tenderness. Neurological: Intact grossly. Extremities: Lower extremities show a little redness around the ankles and feet, but no swelling at this time. LABORATORY: One blood culture has come back as gram-positive cocci. We will have to see if it is a pathogen or contaminant. ASSESSMENT: 1. Questionable left lingular pneumonia. 2. Chronic obstructive pulmonary disease exacerbation. 3. Hypercapnia. 4. Possible cellulitis of lower extremities. 5. Pedal edema. 6. The patient has also had a history of seizures, hyperlipidemia, coronary artery disease, hypertension, and COPD. 7. BPH. He is on Flomax. PLAN: We will consult his enterprise sales executive. We will go ahead and get an echocardiogram to re- evaluate heart. We will get an EKG. We get a proBNP. He will continue with IV antibiotics. We will await blood cultures. We will continue his vancomycin and Zosyn. cc: Priyank Cortes Jr, MD
[2019-07-16] MEDS: LOPRESSOR PO SCH ×2 (10:07→21:10)
[2019-07-16] MEDS: DILANTIN PO SCH ×2 (10:07→21:10)
[2019-07-16] MEDS: LEXAPRO PO SCH (10:12)
[2019-07-16] MEDS: BUSPAR PO SCH ×2 (10:12→21:10)
[2019-07-16] MEDS: NS 1,000 ML IV SCH (11:53)
--- NOTE | 2019-07-16 13:26 | ECHO REPORT ---
ORDER DATE: 07/16/2019 INTERPRETING PHYSICIAN: Dr. Patel Hussein ECHOCARDIOGRAPHIC MEASUREMENTS: 1. Interventricular septum: 0.7 cm. 2. Posterior wall: 0.8 cm. 3. Diastolic diameter: 4.5 cm. 4. Left atrium: 3.0 cm. 5. Aortic root: 3.9 cm. SUMMARY OF THE 2-DIMENSIONAL IMAGIN. Technically suboptimal study. Poor apical windows. Most of the images were obtained in parasternal and subcostal views. 2. Mitral valve was normal. 3. Tricuspid valve was normal. 4. Pulmonic valve was normal. 5. Aortic valve leaflets were trileaflet. 6. There is mild tricuspid regurgitation. Peak velocity across the tricuspid valve less than 2 m/sec. 7. There is mild mitral regurgitation. 8. Normal left ventricular cavity size. Estimated ejection fraction of 65%. 9. There is no pericardial effusion or obvious intracardiac mass or thrombus seen. cc: MD Priyank Olmos Jr, MD
--- NOTE | 2019-07-16 14:09 | Extremity Venous Study ---
PROCEDURE NAME: Venous U/S Bilateral Legs - 07/15/2019 HOME HEALTH CARE WORKER: Brandyn. REQUESTING PHYSICIAN: THA Cancino. INDICATIONS: Pain, edema, redness, short of breath x2 days. FINDINGS: The deep and superficial veins of bilateral lower extremities are visualized along their course. The vessels are compressible with forward flow and no evidence of intraluminal thrombus. SUMMARY: No deep or superficial venous thrombosis seen in bilateral lower extremities. cc: MD Luca Pablo CRNP Roger H. Moss Jr, MD
[2019-07-16] MEDS: VANCOMYCIN 1,350 MG in NS 250 ML IV SCH (14:36)
[2019-07-16] MEDS: PRAVACHOL PO SCH (21:10)
[2019-07-16] MEDS: LOVENOX SUBQ SCH (21:10)
[2019-07-16] MEDS: FLOMAX PO SCH (21:33)
--- NOTE | 2019-07-16 21:45 | CONSULTATION ---
DATE OF CONSULTATION: 07/16/2019 CHIEF COMPLAINT: Shortness of breath and bilateral leg swelling. HISTORY OF PRESENT ILLNESS: This is a 54-year-old male with a past medical history of COPD and unquantified weight loss. The patient also has a complaint of bilateral lower extremity swelling and redness with increasing shortness of breath. He does have a cough and chest congestion with fever. Recent chest x-ray revealed stranding atelectasis or infiltrate in the left hilum and severe COPD. ALLERGIES: Codeine, Abilify, Klonopin and Seroquel. PAST MEDICAL HISTORY: COPD, history of lung cancer, status post radiation treatment, seizure disorder, coronary artery disease, anxiety and depression, BPH, dyslipidemia, hypertension, diabetes, gastritis and reflux disease, history of stroke. PAST SURGICAL HISTORY: Cholecystectomy and hemorrhoidectomy. FAMILY HISTORY: Positive for lung cancer, diabetes and asthma. SOCIAL HISTORY: Notable for ongoing alcohol, drug and tobacco use. REVIEW OF SYSTEMS: A 10-point review of systems was obtained, and the pertinent points are as listed in the HPI, otherwise noncontributory. PHYSICAL EXAMINATION: GENERAL: The patient is sitting in bed in no acute distress at the present time. VITAL SIGNS: Blood pressure 103/68, pulse 79, respirations 20, temperature 98.3, 02 saturation 99% with O2 at 3 L per nasal cannula. HEENT: Head is atraumatic, normocephalic. Pupils are equal and reactive. NECK: Supple. Trachea midline. PULMONARY: Bibasilar crepitation, occasional wheezing. CARDIOVASCULAR: S1 and S2 are appreciated. No gallops or thrills. ABDOMEN: Soft, nontender. Bowel sounds present in all 4 quadrants. EXTREMITIES: Without cyanosis or clubbing. He does have bilateral leg swelling with some redness in the lower legs. NEUROLOGIC: Awake, alert and oriented. DIAGNOSTIC DATA: Mentioned in HPI. LABORATORY DATA: White blood cells 7.04, red blood cells 4.16, hemoglobin 12.2, hematocrit 40.6, platelet count 212. Potassium 5.3, sodium 141, chloride 99, carbon dioxide 36, BUN 18, creatinine 0.7. ASSESSMENT/PLAN: 1. Chronic obstructive pulmonary disease exacerbation. Continue bronchodilators and steroids. 2. Probably left lingular pneumonia. Continue IV antibiotics as prescribed. 3. Possible cellulitis. 4. Continue deep venous thrombosis with Lovenox. 5. Continue gastrointestinal prophylaxis with Prilosec 40 mg p.o. every morning, scheduled. Thank you for the courtesy of this consult. Time spent with patient was 31 minutes. Dictated by THA Tony for Cathleen Ashley MD cc: THA Tony MD Roger H. Moss Jr, MD
[2019-07-17] MEDS: SOLU-MEDROL IV SCH ×3 (02:59→18:19)
[2019-07-17] MEDS: DUONEB (A & A) INH SCH ×4 (03:25→22:43)
[2019-07-17 05:32] LABS: BASO# 0.01 X1000 (0.0-0.2); BASO% 0.2 % (0.0-0.8); EOS# 0.02 X1000 (0.0-0.7); EOS% 0.3 % (0.0-10.0); HEMOGLOBIN 11.2 g/dL (14.0-18.0); LYMPH# 0.85 X1000 (1.2-3.4); LYMPH% 13.2 % (20.5-51.1); MCH 29.5 PG (27-31); MCHC 30.3 g/dL (33-37); MCV 97.4 FL (81-99); MONO# 0.53 X1000 (0.11-0.59); MONO% 8.2 % (1.7-9.3); MPV 8.5 FL (7.4-10.4); NEUT# 5.05 X1000 (1.4-6.5); NEUT% 78.1 % (42.2-75.2); PLT 202 X1000 (130-400); RDW 13.3 % (11.5-14.5); WBC 6.46 X1000 (4.8-10.8)
[2019-07-17 06:02] LABS: AGAP 6; BUN 16 mg/dL (8-22); CALCIUM 8.4 mg/dL (8.8-10.2); CHLORIDE 96 mmol/L (98-107); COSMO 282; CREATININE 0.7 mg/dL (0.7-1.2); ESTIMATED GFR > 60; GLUCOSE 121 mg/dL (70-104); POTASSIUM 4.4 mmol/L (3.5-5.1); SODIUM 140 mmol/L (136-145); TCO2 38 mmol/L (25-35)
[2019-07-17] MEDS: TESSALON PO SCH ×3 (06:26→21:03)
[2019-07-17] MEDS: PRILOSEC PO SCH (06:26)
[2019-07-17] MEDS: ZOSYN 3.375 GM in NS 50 ML IV SCH ×4 (06:26→23:42)
[2019-07-17] MEDS: NS 1,000 ML IV SCH ×2 (07:28→16:57)
[2019-07-17] MEDS: DILANTIN PO SCH ×2 (09:06→21:04)
[2019-07-17] MEDS: BUSPAR PO SCH ×2 (09:07→21:03)
[2019-07-17] MEDS: VANCOMYCIN 1,350 MG in NS 250 ML IV SCH (09:07)
[2019-07-17] MEDS: LOPRESSOR PO SCH ×2 (09:08→21:04)
[2019-07-17] MEDS: LEXAPRO PO SCH (09:08)
--- NOTE | 2019-07-17 11:19 | PROGRESS NOTE ---
DATE: 07/17/2019 ADDENDUM: After I saw him earlier, he called me back into the room and said he wanted me to consult a housing development specialist to see him here in the hospital. When I asked him what was going on he said that when he was cleaning his carpets, he has seen some little worms or larva that were very small get on his skin and crawl under and burrows under his skin. He does have some holes or scabs where he has clawed his skin. He has used methamphetamine in the past. I do not know whether these are real or not. I do not see any larva at this time but I will go ahead and consult Infectious Disease. The patient does have a positive blood culture and he has got a lingular pneumonia, and he has a skin condition of unknown significance. cc: Priyank Cortes Jr, MD MTDD
--- NOTE | 2019-07-17 11:32 | PROGRESS NOTE ---
DATE: 07/17/2019 SUBJECTIVE: The patient says he is feeling better, he wants to go home. I have explained to him that he had 1 positive blood culture and that we need to wait and find out what the final result was on that. He said he was going to consider going home anyway, I suggested that he would have to check out against medical advice and that was his decision, but I did not recommend it. His breathing is better and his redness of his lower extremities is better, as is his swelling. His echocardiogram was essentially normal. He came in apparently with 3 to 4+ pitting edema, but by the time I saw hi, the edema had gone down and the redness has gone down within a day. OBJECTIVE: HEENT: Normocephalic. Lungs: Clear to auscultation and percussion without rhonchi, rales or wheezes. Heart: Regular rate and rhythm without murmurs, gallops or friction rubs. Abdomen: Soft. Active bowel sounds. No organomegaly or tenderness. Neurologic: Intact grossly. Extremities: The legs look normal now. ASSESSMENT: 1. Exacerbation of chronic obstructive pulmonary disease. 2. Questionable left lingular pneumonia. 3. Positive blood culture. PLAN: After I talked with the patient, I talked with Microbiology in the lab and he seems to be growing out Staph aureus, that they do not think it is going to be MRSA but a regular Staph aureus, they are still working on this. I think we need to continue with our IV antibiotics. cc: Priyank Cortes Jr, MD
[2019-07-17] MEDS: MORPHINE IV PRN (12:02)
--- NOTE | 2019-07-17 16:03 | PROVIDER PROGRESS NOTE ---
Progress Note Dr. Ashley Progress Note/Pulmonary and or critical care Subjective: The patient is lying in bed comfortably. She still has occasional cough with production at times. Objective: PHYSICAL EXAMINATION: GENERAL: The patient is sitting in bed in no acute distress at the present time. VITAL SIGNS: Blood pressure 125/61 pulse 80, respirations 16 temperature 97.4, 02 saturation 100% with O2 at 3 L per nasal cannula. HEENT: Head is atraumatic, normocephalic. Pupils are equal and reactive. NECK: Supple. Trachea midline. PULMONARY: Bibasilar crepitation, occasional wheezing. CARDIOVASCULAR: S1 and S2 are appreciated. No gallops or thrills. ABDOMEN: Soft, nontender. Bowel sounds present in all 4 quadrants. EXTREMITIES: Without cyanosis or clubbing. He does have bilateral leg swelling with some redness in the lower legs. NEUROLOGIC: Awake, alert and oriented. Laboratory Results 07/17/19 07/17/19 05:20 05:20 WBC 6.46 RBC 3.80 L Hgb 11.2 L Hct 37.0 L MCV 97.4 MCH 29.5 MCHC 30.3 L RDW Std Deviation 13.3 Plt Count 202 MPV 8.5 Immature Gran % (Auto) 0.0 Neut % (Auto) 78.1 H Lymph % (Auto) 13.2 L [place] % (Auto) 8.2 Eos % (Auto) 0.3 Baso % (Auto) 0.2 Immature Gran # (Auto) 0.00 Neut # (Auto) 5.05 Lymph # (Auto) 0.85 L [place] # (Auto) 0.53 Eos # (Auto) 0.02 Baso # (Auto) 0.01 Sodium 140 Potassium 4.4 D Chloride 96 L Carbon Dioxide 38 H Anion Gap 6 BUN 16 Creatinine 0.7 Estimated GFR/1.73 m2 > 60 BUN/Creatinine Ratio 23 Glucose 121 H Calculated Osmolality 282 Calcium 8.4 L ASSESSMENT/PLAN: 1. Chronic obstructive pulmonary disease exacerbation. Continue bronchodilators and steroids. 2. Probably left lingular pneumonia. Continue IV antibiotics as prescribed. 3. Possible cellulitis. 4. Continue deep venous thrombosis with Lovenox. 5. Continue gastrointestinal prophylaxis with Prilosec 40 mg p.o. every morning, scheduled.
[2019-07-17] MEDS ORDERED: ELIMITE 5% CREAM TOP ONE (19:15)
[2019-07-17] MEDS: PRAVACHOL PO SCH (21:04)
[2019-07-17] MEDS: FLOMAX PO SCH (21:04)
[2019-07-17] MEDS: LOVENOX SUBQ SCH (21:08)
[2019-07-17] MEDS: ATARAX PO PRN (21:16)
[2019-07-18] MEDS: SOLU-MEDROL IV SCH ×3 (02:44→18:22)
[2019-07-18] MEDS: DUONEB (A & A) INH SCH ×4 (03:19→22:20)
[2019-07-18] MEDS: VANCOMYCIN 1,350 MG in NS 250 ML IV SCH ×2 (03:25→23:22)
[2019-07-18] MEDS: NS 1,000 ML IV SCH ×2 (05:34→09:34)
[2019-07-18 05:52] LABS: BASO# 0.01 X1000 (0.0-0.2); BASO% 0.1 % (0.0-0.8); EOS# 0.03 X1000 (0.0-0.7); EOS% 0.4 % (0.0-10.0); HEMATOCRIT 38.3 % (42.0-52.0); HEMOGLOBIN 11.4 g/dL (14.0-18.0); LYMPH# 1.16 X1000 (1.2-3.4); MCH 29.2 PG (27-31); MCHC 29.8 g/dL (33-37); MONO# 0.64 X1000 (0.11-0.59); MONO% 9.4 % (1.7-9.3); MPV 8.9 FL (7.4-10.4); NEUT# 4.98 X1000 (1.4-6.5); NEUT% 73.1 % (42.2-75.2); PLT 225 X1000 (130-400); RBC 3.91 XMIL (4.7-6.1); RDW 13.5 % (11.5-14.5); WBC 6.82 X1000 (4.8-10.8)
[2019-07-18 06:10] LABS: AGAP 6; BUN 15 mg/dL (8-22); CALCIUM 8.2 mg/dL (8.8-10.2); CHLORIDE 98 mmol/L (98-107); COSMO 280; CREATININE 0.7 mg/dL (0.7-1.2); ESTIMATED GFR > 60; GLUCOSE 128 mg/dL (70-104); POTASSIUM 4.5 mmol/L (3.5-5.1); SODIUM 139 mmol/L (136-145); TCO2 35 mmol/L (25-35)
[2019-07-18] MEDS: TESSALON PO SCH ×3 (06:15→21:23)
[2019-07-18] MEDS: PRILOSEC PO SCH (06:15)
[2019-07-18] MEDS: ZOSYN 3.375 GM in NS 50 ML IV SCH ×3 (06:16→18:25)
--- NOTE | 2019-07-18 08:12 | Diag Imaging Result Doc PS360 ---
EXAM: CHEST-1 VIEW INDICATION: SOB TECHNIQUE: One view COMPARISON: 07/15/2019 FINDINGS: The left perihilar infiltrate seen on the previous study is approximately stable. There is increasing opacity in the right perihilar region which may also represent a developing infiltrate. No other new consolidations are appreciated. Cardiac silhouette is stable. IMPRESSION: Stable left perihilar opacity and increasing perihilar opacity on the right. Electronically signed by David Hillman 07/18/2019 8:10 AM
[2019-07-18] MEDS: BUSPAR PO SCH ×2 (09:33→21:23)
[2019-07-18] MEDS: DILANTIN PO SCH ×2 (09:33→21:23)
[2019-07-18] MEDS: LOPRESSOR PO SCH ×2 (09:35→21:24)
[2019-07-18] MEDS: LEXAPRO PO SCH (09:35)
--- NOTE | 2019-07-18 10:49 | PROGRESS NOTE ---
DATE: 07/18/2019 SUBJECTIVE: The patient does have what appears to be lice or some sort of larva that is crawling on his skin. We did get one. We will try to get it identified. He was treated with permethrin 5% cream last night. We will see if this will clear it up. It is most likely in his house and I have made him aware of that. His blood cultures did grow Staphylococcus aureus that was not MRSA. It is sensitive to the vancomycin that we have him on and the Unasyn should cover it as well. His chest x-ray still shows a lingular infiltrate and now a little right perihilar infiltrate. Clinically, he is feeling better. OBJECTIVE: Blood pressure is 120/81, respirations 16, pulse 78, temperature 98 degrees Fahrenheit. HEENT: Normocephalic. EOMs intact. PERRLA. Throat clear. Lungs: Sound fairly clear to auscultation. Heart: Regular rate and rhythm without murmurs, gallops, or friction rubs. Abdomen: Soft. Active bowel sounds. No organomegaly or tenderness. White count is 6820, hemoglobin 11.4. Electrolytes essentially normal. ASSESSMENT: 1. Left lingular and right perihilar pneumonia. 2. Bacteremia with Staphylococcus aureus. 3. Lice. PLAN: We will continue to treat with antibiotics and repeat a chest x-ray in a day or two. His COPD exacerbation seems to have gotten better. cc: Priyank Cortes Jr, MD
--- NOTE | 2019-07-18 17:16 | PROVIDER PROGRESS NOTE ---
Progress Note Dr. Ashley Progress Note/Pulmonary and or critical care Subjective: The patient is lying in bed comfortably. He still has occasional cough with production at times. Objective: PHYSICAL EXAMINATION: GENERAL: The patient is sitting in bed in no acute distress at the present time. VITAL SIGNS: Blood pressure 124/82 pulse 84, respirations 16 temperature 97.9, 02 saturation 100% RA HEENT: Head is atraumatic, normocephalic. Pupils are equal and reactive. NECK: Supple. Trachea midline. PULMONARY: Bibasilar crepitation, occasional wheezing. CARDIOVASCULAR: S1 and S2 are appreciated. No gallops or thrills. ABDOMEN: Soft, nontender. Bowel sounds present in all 4 quadrants. EXTREMITIES: Without cyanosis or clubbing. He does have bilateral leg swelling with some redness in the lower legs. NEUROLOGIC: Awake, alert and oriented. LABS/Radiology Laboratory Results 07/18/19 07/18/19 05:07 05:07 WBC 6.82 RBC 3.91 L Hgb 11.4 L Hct 38.3 L MCV 98.0 MCH 29.2 MCHC 29.8 L RDW Std Deviation 13.5 Plt Count 225 MPV 8.9 Immature Gran % (Auto) 0.0 Neut % (Auto) 73.1 Lymph % (Auto) 17.0 L [place] % (Auto) 9.4 H Eos % (Auto) 0.4 Baso % (Auto) 0.1 Immature Gran # (Auto) 0.00 Neut # (Auto) 4.98 Lymph # (Auto) 1.16 L [place] # (Auto) 0.64 H Eos # (Auto) 0.03 Baso # (Auto) 0.01 Sodium 139 Potassium 4.5 Chloride 98 Carbon Dioxide 35 Anion Gap 6 BUN 15 Creatinine 0.7 Estimated GFR/1.73 m2 > 60 BUN/Creatinine Ratio 21 Glucose 128 H Calculated Osmolality 280 Calcium 8.2 L ASSESSMENT/PLAN: 1. Chronic obstructive pulmonary disease exacerbation. Continue bronchodilators and steroids. 2. Probably left lingular pneumonia. Continue IV antibiotics as prescribed. 3. Possible cellulitis. 4. Continue deep venous thrombosis with Lovenox. 5. Continue gastrointestinal prophylaxis with Prilosec 40 mg p.o. every morning, scheduled. 8. LICE
--- NOTE | 2019-07-18 17:22 | Diag Imaging Result Doc PS360 ---
EXAM: CT THORAX W/O CONTRAST INDICATION: SOB TECHNIQUE: This exam was performed using automated exposure control, adjustment of mA or kV according to patient size, and/or use of iterative reconstruction technique. COMPARISON: 07/03/2014 FINDINGS: There is advanced pulmonary emphysema with an apical predominance. There is a spiculated nodular density in the lingula on image 76 of series 3. There is surrounding fibrosis. Although it is possible this represents nodular fibrosis, neoplasm cannot be excluded. Note that it is more prominent than on the previous study from 2014. It measures up to 2.7 x 1.8 cm axially. There are a few tiny air spaces with surrounding mild interstitial thickening (for instance on image 77 of series 3 in both lower lobes posteriorly). These probably represent areas of focal bronchiectasis. Some are stable and others are new. There is mild subsegmental atelectasis at the right lung base. There is trace pleural fluid on the right at the base. There are a couple of calcified granulomata bilaterally. There is no cardiomegaly. There are calcified mediastinal and hilar lymph nodes indicating prior granulomatous disease. Limited views of the upper abdomen are essentially unremarkable. IMPRESSION: 1.Advanced pulmonary emphysema. 2.Somewhat masslike focus with surrounding fibrosis involving the lingula that has increased in prominence since the previous study. Neoplasm cannot be excluded. 3.A few tiny airspaces with surrounding interstitial thickening bilaterally that likely represents trace focal bronchiectasis. Some of these areas are new and others are stable. Electronically signed by David Hillman 07/18/2019 5:19 PM
[2019-07-18] MEDS: MORPHINE IV PRN (18:28)
[2019-07-18] MEDS: LOVENOX SUBQ SCH (21:19)
[2019-07-18] MEDS: PRAVACHOL PO SCH (21:23)
[2019-07-18] MEDS: FLOMAX PO SCH (21:24)
[2019-07-19] MEDS: ZOSYN 3.375 GM in NS 50 ML IV SCH ×4 (01:14→18:04)
[2019-07-19] MEDS: SOLU-MEDROL IV SCH ×3 (02:00→18:04)
[2019-07-19] MEDS: MORPHINE IV PRN ×3 (02:35→20:57)
[2019-07-19] MEDS: DUONEB (A & A) INH SCH ×4 (03:15→21:20)
[2019-07-19] MEDS: VANCOMYCIN 1,350 MG in NS 250 ML IV SCH ×2 (05:41→12:00)
[2019-07-19 05:57] LABS: BASO# 0.01 X1000 (0.0-0.2); BASO% 0.2 % (0.0-0.8); EOS# 0.02 X1000 (0.0-0.7); EOS% 0.3 % (0.0-10.0); HEMATOCRIT 38.9 % (42.0-52.0); HEMOGLOBIN 11.7 g/dL (14.0-18.0); LYMPH% 12.6 % (20.5-51.1); MCH 29.4 PG (27-31); MCHC 30.1 g/dL (33-37); MCV 97.7 FL (81-99); MONO# 0.68 X1000 (0.11-0.59); MONO% 10.7 % (1.7-9.3); MPV 8.9 FL (7.4-10.4); NEUT# 4.85 X1000 (1.4-6.5); NEUT% 76.2 % (42.2-75.2); PLT 232 X1000 (130-400); RBC 3.98 XMIL (4.7-6.1); RDW 13.6 % (11.5-14.5); WBC 6.36 X1000 (4.8-10.8)
[2019-07-19 06:09] LABS: AGAP 8; BUN 16 mg/dL (8-22); CHLORIDE 100 mmol/L (98-107); COSMO 284; CREATININE 0.8 mg/dL (0.7-1.2); ESTIMATED GFR > 60; GLUCOSE 118 mg/dL (70-104); POTASSIUM 4.6 mmol/L (3.5-5.1); SODIUM 141 mmol/L (136-145); TCO2 33 mmol/L (25-35)
[2019-07-19] MEDS: PRILOSEC PO SCH (06:22)
[2019-07-19] MEDS: TESSALON PO SCH ×3 (06:22→20:58)
[2019-07-19] MEDS: NS 1,000 ML IV SCH ×2 (06:34→16:04)
--- NOTE | 2019-07-19 09:23 | PROGRESS NOTE ---
DATE: 07/19/2019 SUBJECTIVE: The patient says he does not feel well, that he again wants to go home. I have explained to him that he has a positive blood culture and still has pneumonia in the left lingular area. CT scan showed possible mass in that area versus infiltrate with fibrosis. The patient has had a history of lung cancer. Will have Pulmonology evaluate. OBJECTIVE: Vital Signs: Blood pressure 126/77, respirations 17, temp 98.5 degrees Fahrenheit, pulse is 94 and regular. HEENT: Normocephalic. EOMs intact. PERRLA. Throat clear. Lungs: Sound fairly clear to auscultation. Exacerbation of COPD seems to have improved. Heart: Regular rate and rhythm without murmurs, gallops, friction rubs. Abdomen: Soft. Active bowel sounds. No organomegaly or tenderness. Neurological: Intact grossly. Skin: The patient does have small lesions on his skin that we assume are lice and have treated. PLAN: I have explained to the patient that he needs to stay on IV antibiotics. White count has remained stable. Electrolytes are stable. The patient has Staph aureus in his blood stream. Plan to continue treatments as long as the patient will stay here. cc: Priyank Cortes Jr, MD
[2019-07-19] MEDS: BUSPAR PO SCH ×2 (10:08→20:58)
[2019-07-19] MEDS: LOPRESSOR PO SCH ×2 (10:09→21:03)
[2019-07-19] MEDS: DILANTIN PO SCH ×2 (10:09→20:59)
[2019-07-19] MEDS: LEXAPRO PO SCH (10:38)
--- NOTE | 2019-07-19 16:16 | Diag Imaging Result Doc PS360 ---
EXAM: CHEST-2 VIEWS 07/19/2019 HISTORY: pneumonia TECHNIQUE: PA and lateral chest COMMENT: There are ill-defined opacities present in the lingula which were also present on 07/18/2019. There has been no appreciable change since 03/08/2019. Compared to 07/03/2014 there has been no appreciable change. There is apparent COPD. IMPRESSION: COPD with fibrosis in the lingula. Electronically signed by Ricci Pedersen 07/19/2019 4:13 PM
--- NOTE | 2019-07-19 17:41 | PROVIDER PROGRESS NOTE ---
Progress Note Dr. Ashley Progress Note/Pulmonary and or critical care Subjective: The patient is sitting at the edge of the bed. He is anxious to go home. He appears weak and has SOB with activities noted during our encounter. Objective: Vital Signs: T 97.8 BP 114/57, [place] 87, RR 17 and SaO2 97% on room air. Physical Examination: General: Lying in bed. No acute distress noted. HEENT: Normocephalic. Atraumatic. Trachea midline. Mucosa pink and moist. PERRL. Chest: Even and unlabored. No increased work of breathing. Symmetrical excursin. Bibasilar crepitation with occasional rhonchi. Cardiovascular: Regular rate and rhythm. S1 S2 appreciated. Gastrointestinal: Soft. Nontender. Flat. Bowel sounds present. Extremities: BLE swelling with redness. No cyanosis. No clubbing. Neuro: A/O x3. Answer simple questions. Follow simple commands. Labs and Radiology: Laboratory Results 07/18/19 07/19/19 07/19/19 19:34 05:16 05:16 WBC 6.36 RBC 3.98 L Hgb 11.7 L Hct 38.9 L MCV 97.7 MCH 29.4 MCHC 30.1 L RDW Std Deviation 13.6 Plt Count 232 MPV 8.9 Immature Gran % (Auto) 0.0 Neut % (Auto) 76.2 H Lymph % (Auto) 12.6 L [place] % (Auto) 10.7 H Eos % (Auto) 0.3 Baso % (Auto) 0.2 Immature Gran # (Auto) 0.00 Neut # (Auto) 4.85 Lymph # (Auto) 0.80 L [place] # (Auto) 0.68 H Eos # (Auto) 0.02 Baso # (Auto) 0.01 Sodium 141 Potassium 4.6 Chloride 100 Carbon Dioxide 33 Anion Gap 8 BUN 16 Creatinine 0.8 Estimated GFR/1.73 m2 > 60 BUN/Creatinine Ratio 20 Glucose 118 H Calculated Osmolality 284 Calcium 8.0 L Random Vancomycin 8.50 Assessment: Hypercapnic respiratory failure. pCO2 70 on 07/15/19. Chronic hypoxemic respiratory failure. COPD exacerbation. Ongoing tobacco use prior to admission. Possible left lingular and right perihilar pneumonia. CT thorax without contrast on 07/18/19 showed advanced pulmonary emphysema, somewhat masslike focus with surrounding fibrosis involving the lingula that has increase in prominence since the previous study, neoplasm can not be excluded, a few tiny airspaces with surrounding interstitial thickening bilaterally that likely represents trace focal bronchiectasis. History of lung cancer s/p radiation. Aware. MARÍA. Possible cellulitis. Aware. Possible bacteremia with Staphylococcus Aureus. Aware. Lice. s/p Permethrin once on 07/17/19. Aware. Plan: Continue antibiotics including Vancomycin and Zosyn, On Day 4. Continue bronchodilators and steroids. Supplemental oxygen as needed. BiPAP at bedtime as patient allows. Continue GI and DVT prophylaxis. Tobacco cessation education. We recommend outpatient PET scan follow-up. Dr. Ashley did the examination, evaluation, management and orders. THA did the dictation/scribing for Dr. Ashley according to his direction.
[2019-07-19] MEDS: LOVENOX SUBQ SCH (19:43)
[2019-07-19] MEDS: PRAVACHOL PO SCH ×2 (20:58→21:03)
[2019-07-19] MEDS: FLOMAX PO SCH ×2 (20:59→21:04)
[2019-07-20] MEDS: VANCOMYCIN 1,350 MG in NS 250 ML IV SCH ×3 (00:21→22:48)
[2019-07-20] MEDS: ZOSYN 3.375 GM in NS 50 ML IV SCH ×5 (00:21→23:19)
[2019-07-20] MEDS: NS 1,000 ML IV SCH ×2 (00:24→23:19)
[2019-07-20] MEDS: SOLU-MEDROL IV SCH ×3 (02:18→22:48)
[2019-07-20] MEDS: DUONEB (A & A) INH SCH ×5 (04:49→22:35)
[2019-07-20 05:17] LABS: BASO# 0.01 X1000 (0.0-0.2); BASO% 0.2 % (0.0-0.8); EOS# 0.03 X1000 (0.0-0.7); EOS% 0.5 % (0.0-10.0); HEMATOCRIT 41.4 % (42.0-52.0); HEMOGLOBIN 12.4 g/dL (14.0-18.0); IMM GRAN# 0.02 X1000 (0.0-0.04); IMM GRAN% 0.3 % (0.0-0.5); LYMPH# 1.12 X1000 (1.2-3.4); LYMPH% 17.4 % (20.5-51.1); MCH 29.2 PG (27-31); MCV 97.6 FL (81-99); MONO# 0.55 X1000 (0.11-0.59); MONO% 8.6 % (1.7-9.3); MPV 8.5 FL (7.4-10.4); NEUT# 4.69 X1000 (1.4-6.5); PLT 250 X1000 (130-400); RBC 4.24 XMIL (4.7-6.1); RDW 13.8 % (11.5-14.5); WBC 6.42 X1000 (4.8-10.8)
[2019-07-20 05:34] LABS: AGAP 10; BUN 15 mg/dL (8-22); CALCIUM 8.4 mg/dL (8.8-10.2); CHLORIDE 97 mmol/L (98-107); COSMO 283; CREATININE 0.7 mg/dL (0.7-1.2); ESTIMATED GFR > 60; GLUCOSE 108 mg/dL (70-104); POTASSIUM 4.4 mmol/L (3.5-5.1); SODIUM 141 mmol/L (136-145); TCO2 34 mmol/L (25-35)
[2019-07-20] MEDS: MORPHINE IV PRN ×3 (07:01→23:19)
[2019-07-20] MEDS: TESSALON PO SCH ×3 (07:01→22:47)
[2019-07-20] MEDS: PRILOSEC PO SCH (07:02)
[2019-07-20] MEDS: DILANTIN PO SCH ×2 (09:40→22:47)
[2019-07-20] MEDS: BUSPAR PO SCH ×2 (09:40→22:46)
[2019-07-20] MEDS: LOPRESSOR PO SCH ×2 (09:40→22:48)
[2019-07-20] MEDS ORDERED: MIRALAX PO PRN (09:52)
--- NOTE | 2019-07-20 09:55 | PROGRESS NOTE ---
DATE: 07/20/2019 SUBJECTIVE: The patient is insistent that he wants to go home. I have explained to him that he has MSSA and that this needs to be worked up. This is a 20 to 40 percent rate with this diagnosis. I did tell him that the plan is to get blood cultures, which we did yesterday and if they come back negative, then he will need IV antibiotics for 2 weeks after that if we find no source of infection. If they are positive, we may have to treat him longer and I told him that we could possibly get this done at his home, but we need to find out about this if we do find a source of infection that needs to be taken care of. His echocardiogram at admission time did not show any vegetations on his heart valves. He does tell me that he had some pins placed in his left knee so he does have some metal in his body. We are going to get a bone scan today. I have explained to him that we need to know if there looks like there is any osteomyelitis. If so, then we will get ortho to come look and see if it is possible to remove those screws. The patient also has a left lingular pneumonia with possible mass and I have explained this to him as well. Pulmonary wants to do an outpatient PET scan on him. OBJECTIVE: Vital Signs: 98.7 degrees Fahrenheit, pulse 87 regular, respirations 20, blood pressure 120/71. HEENT: He is normocephalic. Throat clear. Lungs: Sound clear to auscultation and percussion without rhonchi, rales, or wheezes. Heart: Regular rate and rhythm without murmurs, gallops, friction rubs. Abdomen: Soft. Active bowel sounds. No organomegaly or tenderness. Neurological: Intact grossly. White count 6420, hemoglobin 12.4, hematocrit 41.4. Electrolytes essentially normal. ASSESSMENT: 1. Staph aureus bacteremia. 2. Lingular pneumonia. 3. Possible lung cancer. Has had this before. 4. COPD. PLAN: We will get a bone scan today. If it looks like there are any signs of osteomyelitis, may consider whether surgical intervention would help. cc: Priyank Cortes Jr, MD
--- NOTE | 2019-07-20 10:24 | Diag Imaging Result Doc PS360 ---
EXAM: KNEE 3 VIEWS LEFT INDICATION: MSSA/ screws in knee TECHNIQUE: One view COMPARISON: None. FINDINGS: Three surgical lag screws are noted in the proximal tibia. There is no discrete fracture, dislocation, or significant intrinsic osseous lesion. The visualized joint spaces are essentially unremarkable. There is mild subcutaneous soft tissue edema around the lower thigh. IMPRESSION: Mild subcutaneous soft tissue edema. No evidence of acute osseous abnormality. Electronically signed by David Hillman 07/20/2019 10:21 AM
[2019-07-20] MEDS: LEXAPRO PO SCH (11:13)
--- NOTE | 2019-07-20 14:51 | Diag Imaging Result Doc PS360 ---
3 PHASE BONE SCAN - 07/20/2019 INDICATION: rule out osteomyelitis TECHNIQUE: Three phase bone scan of the knees. 26.5 mCi of MDP was administered. COMPARISON: Knee x-rays from 07/20/2019 FINDINGS: There is normal perfusion, blood pool, and delayed phase activity of the knees. No evidence of osteomyelitis. IMPRESSION: Negative exam. Electronically signed by Shaan Low 07/20/2019 2:49 PM
--- NOTE | 2019-07-20 16:52 | PROVIDER PROGRESS NOTE ---
Progress Note Dr. Ashley Progress Note/Pulmonary and or critical care Subjective: The patient is lying in bed with no acute distress noted. He is complaining of constipation at this time. He still has occasional cough, but it is nonsignificant per patient. Objective: Vital Signs: T 98.7, BP 120/71, [place] 87, RR 20 and SaO2 99% on NC 3L. Physical Examination: General: Lying in bed. No acute distress noted. HEENT: Normocephalic. Atraumatic. Trachea midline. Mucosa pink and moist. PERRL. Chest: Even and unlabored. No increased work of breathing. Symmetrical excursin. Diminished breathing sounds bilaterally, otherwise, clear to auscultation. Cardiovascular: Regular rate and rhythm. S1 S2 appreciated. Gastrointestinal: Soft. Nontender. Flat. Bowel sounds present. Extremities: BLE swelling with redness. No cyanosis. No clubbing. Neuro: A/O x3. Answer simple questions. Follow simple commands. Labs and Radiology: Laboratory Results 07/20/19 07/20/19 05:01 05:01 WBC 6.42 RBC 4.24 L Hgb 12.4 L Hct 41.4 L MCV 97.6 MCH 29.2 MCHC 30.0 L RDW Std Deviation 13.8 Plt Count 250 MPV 8.5 Immature Gran % (Auto) 0.3 Neut % (Auto) 73.0 Lymph % (Auto) 17.4 L [place] % (Auto) 8.6 Eos % (Auto) 0.5 Baso % (Auto) 0.2 Immature Gran # (Auto) 0.02 Neut # (Auto) 4.69 Lymph # (Auto) 1.12 L [place] # (Auto) 0.55 Eos # (Auto) 0.03 Baso # (Auto) 0.01 Sodium 141 Potassium 4.4 Chloride 97 L Carbon Dioxide 34 Anion Gap 10 BUN 15 Creatinine 0.7 Estimated GFR/1.73 m2 > 60 BUN/Creatinine Ratio 21 Glucose 108 H Calculated Osmolality 283 Calcium 8.4 L Assessment: Hypercapnic respiratory failure. pCO2 70 on 07/15/19. Patient apparently on home CPAP therapy qhs. Chronic hypoxemic respiratory failure. COPD exacerbation. Ongoing tobacco use prior to admission. Possible left lingular and right perihilar pneumonia. CT thorax without contrast on 07/18/19 showed advanced pulmonary emphysema, somewhat masslike focus with surrounding fibrosis involving the lingula that has increase in prominence since the previous study, neoplasm can not be excluded, a few tiny airspaces with surrounding interstitial thickening bilaterally that likely represents trace focal bronchiectasis. History of lung cancer s/p radiation. Aware. MARÍA. Possible cellulitis. Aware. Possible bacteremia with Staphylococcus Aureus. Aware. Lice. s/p Permethrin once on 07/17/19. Aware. Plan: Continue antibiotics including Vancomycin and Zosyn, On Day 5. Continue bronchodilators and steroids. We are tapering Solu-Medrol from q8h to q12h at this time. Supplemental oxygen as needed. Continue GI and DVT prophylaxis. Tobacco cessation education. We recommend outpatient PET scan follow-up.
--- NOTE | 2019-07-20 18:59 | ORTHOPAEDICS CONSULTATION ---
DATE: 07/20/2019 CHIEF COMPLAINT: Left knee pain and bilateral leg swelling. HISTORY OF PRESENT ILLNESS: This is a 54-year-old male who presented to the ER for cough and chest congestion with fever and shortness of breath. He was evaluated by the ER physician and admitted for a septic workup. Orthopedics was consulted to come see the patient for his left knee and leg pain. ALLERGIES: The patient is allergic to codeine, Abilify, Klonopin, Seroquel. PAST MEDICAL HISTORY: COPD, lung cancer, seizure disorder, CAD, anxiety, depression, BPH, dyslipidemia, hypertension, diabetes, gastritis, and reflux disease, possible stroke. PAST SURGICAL HISTORY: He has had a cholecystectomy and hemorrhoidectomy. SOCIAL HISTORY: Positive for alcohol, drug, and tobacco use. REVIEW OF SYSTEMS: A 12-point review of systems was performed. Pertinent positives in HPI. PHYSICAL EXAMINATION: Vital Signs: Temperature 98.3 degrees, pulse rate 67, respiratory rate 20, blood pressure 119/68, oxygen saturation 97% on 2 L. General: Patient is awake and alert and sitting on the side of the bed in no acute distress. HEENT: Head is atraumatic, normocephalic. Eyes equal, round, reactive. Neck: Supple. Pulmonary: There is equal chest expansion, rise and fall. Cardiovascular: Regular rate and rhythm. Abdomen: Soft and nontender. Extremities: Left lower extremity exam shows good range of motion to the left knee. There is some mild erythema to bilateral lower extremities. There is some mild edema. There is negative Homans sign. ASSESSMENT: 1. Cellulitis of bilateral lower extremities. 2. Proximal tibia screw fixation, left knee, 2000, by Dr. Kyle. We have reviewed the bone scan and it did not show any hot spots that would be congruent with infection. There is no evidence of infection coming from the hardware in the left knee. PLAN: We plan to let his primary doctors handle his cellulitis. They can consult us for any other need. The bone scan was negative. Dictated by THA Chacko for David Kyle MD cc: THA Chacko MD Roger H. Moss Jr, MD
[2019-07-20] MEDS: LOVENOX SUBQ SCH (20:10)
[2019-07-20] MEDS: FLOMAX PO SCH (22:47)
[2019-07-20] MEDS: PRAVACHOL PO SCH (22:47)
[2019-07-21] MEDS: NS 1,000 ML IV SCH ×3 (04:49→17:29)
[2019-07-21] MEDS: DUONEB (A & A) INH SCH ×4 (05:41→21:10)
[2019-07-21 06:34] LABS: BASO# 0.02 X1000 (0.0-0.2); BASO% 0.3 % (0.0-0.8); EOS# 0.04 X1000 (0.0-0.7); EOS% 0.7 % (0.0-10.0); HEMATOCRIT 36.6 % (42.0-52.0); HEMOGLOBIN 11.5 g/dL (14.0-18.0); LYMPH# 1.62 X1000 (1.2-3.4); LYMPH% 27.9 % (20.5-51.1); MCH 30.3 PG (27-31); MCHC 31.4 g/dL (33-37); MCV 96.3 FL (81-99); MONO# 0.66 X1000 (0.11-0.59); MONO% 11.4 % (1.7-9.3); MPV 8.6 FL (7.4-10.4); NEUT# 3.47 X1000 (1.4-6.5); NEUT% 59.7 % (42.2-75.2); PLT 254 X1000 (130-400); RDW 13.7 % (11.5-14.5); WBC 5.81 X1000 (4.8-10.8)
[2019-07-21 06:50] LABS: AGAP 8; BUN 14 mg/dL (8-22); CHLORIDE 97 mmol/L (98-107); COSMO 278; CREATININE 0.8 mg/dL (0.7-1.2); ESTIMATED GFR > 60; GLUCOSE 100 mg/dL (70-104); POTASSIUM 4.5 mmol/L (3.5-5.1); SODIUM 139 mmol/L (136-145); TCO2 34 mmol/L (25-35)
[2019-07-21] MEDS: TESSALON PO SCH ×4 (07:08→21:40)
[2019-07-21] MEDS: ZOSYN 3.375 GM in NS 50 ML IV SCH (07:08)
[2019-07-21] MEDS: PRILOSEC PO SCH (07:09)
[2019-07-21] MEDS: MORPHINE IV PRN ×3 (09:16→23:06)
[2019-07-21] MEDS: ZOFRAN IV PRN ×2 (09:16→14:32)
[2019-07-21] MEDS: DILANTIN PO SCH (09:18)
[2019-07-21] MEDS: SOLU-MEDROL IV SCH (09:19)
[2019-07-21] MEDS: LEXAPRO PO SCH (09:19)
[2019-07-21] MEDS: BUSPAR PO SCH ×2 (09:19→21:39)
[2019-07-21] MEDS: LOPRESSOR PO SCH ×2 (09:19→21:40)
--- NOTE | 2019-07-21 09:49 | PROGRESS NOTE ---
DATE: 07/21/2019 SUBJECTIVE: The patient says he is feeling better. He wants to go home. He has said that every day since he has been in the hospital. I have explained to him that we had a positive blood culture with Staph aureus, and the recommendation is 14 days of IV antibiotics after the second round of blood cultures have proven negative. He still has 1 culture done yesterday that is pending. The one on 07/19/2019 actually showed no growth. He had 1 culture that showed Staph aureus. He is on vancomycin for this. He had also had what appeared to be pneumonia in the left lingula. There is some question about whether there is a mass there. delivery specialist wants to do a PET scan sometime after he gets over the pneumonia as an outpatient. I did have Dr. Kyle, his orthopedic surgeon, come by and check his knees as they have been hurting, and he has pins or screws in the left knee, and we wanted to make sure there were no signs of osteomyelitis. At this point, we do not believe there is any osteomyelitis there, and do not have a source for his Staph aureus infection. Will try to make arrangements so he can get his IV vancomycin for the next 14 days at home. OBJECTIVE: Vital Signs: Blood pressure is 112/66, respirations 16, pulse 72, temperature 98.1 degrees. HEENT: Normocephalic. EOMs intact. PERRLA. Throat clear. Lungs: Sound clear to auscultation and percussion without rhonchi, rales, or wheezes. Heart: Regular rate and rhythm without murmurs, gallops, friction rubs. Abdomen: Soft. Active bowel sounds. No organomegaly or tenderness. Neurological: Intact grossly. Skin: Lesion seems to be getting better. Cellulitis in his lower extremities seems to be improved. ASSESSMENT: 1. Exacerbation of chronic obstructive pulmonary disease. 2. Questionable left hilar pneumonia. 3. Questionable mass in the left lingula. 4. Staphylococcus aureus bacteremia. 5. Lice. 6. Osteoarthritis. 7. Cellulitis of lower extremities, now resolved. PLAN: Will try to continue with his vancomycin, hopefully just for 14 days, if his next culture comes back negative. The Staph aureus was not sensitive to penicillin. cc: Priyank Cortes Jr, MD
[2019-07-21 10:44] LABS: INR 0.88
[2019-07-21] MEDS: VANCOMYCIN 1,350 MG in NS 250 ML IV SCH (11:50)
[2019-07-21] MEDS ORDERED: NS 250 ML ONE (13:26)
[2019-07-21] MEDS: ATARAX PO PRN (14:32)
--- NOTE | 2019-07-21 18:56 | PROVIDER PROGRESS NOTE ---
Progress Note Dr. Ashley Progress Note/Pulmonary and or critical care Subjective: The patient just walked back from the bathroom without oxygen on. No SOB noted. He is anxious initially as he was told that he can not be discharged today. I explain to him that one of his blood cultures showed positive Staphylococcus Aureus, which requires IV antibiotics. Later he becomes tearful and starts crying. He reports constipation. He denies cough or SOB. Objective: Vital Signs: T 98.1 (no fever in last 24 hours), BP 112/66, [place] 72, RR 16 and SaO2 96% on [place] 2L. Physical Examination: General: No acute distress noted. HEENT: Normocephalic. Atraumatic. Trachea midline. Mucosa pink and moist. PERRL. Chest: Even and unlabored. No increased work of breathing. Symmetrical excursin. Diminished breathing sounds bilaterally, otherwise, clear to auscultation. Cardiovascular: Regular rate and rhythm. S1 S2 appreciated. Gastrointestinal: Soft. Nontender. Flat. Bowel sounds present. Extremities: BLE swelling with redness. No cyanosis. No clubbing. Neuro: A/O x3. Answer simple questions. Follow simple commands. Labs and Radiology: Laboratory Results 07/21/19 07/21/19 07/21/19 06:08 06:08 10:02 WBC 5.81 RBC 3.80 L Hgb 11.5 L Hct 36.6 L MCV 96.3 MCH 30.3 MCHC 31.4 L RDW Std Deviation 13.7 Plt Count 254 MPV 8.6 Neut % (Auto) 59.7 Lymph % (Auto) 27.9 [place] % (Auto) 11.4 H Eos % (Auto) 0.7 Baso % (Auto) 0.3 Neut # (Auto) 3.47 Lymph # (Auto) 1.62 [place] # (Auto) 0.66 H Eos # (Auto) 0.04 Baso # (Auto) 0.02 PT INR Sodium 139 Potassium 4.5 Chloride 97 L Carbon Dioxide 34 Anion Gap 8 BUN 14 Creatinine 0.8 Estimated GFR/1.73 m2 > 60 BUN/Creatinine Ratio 18 Glucose 100 Calculated Osmolality 278 Calcium 8.0 L Random Vancomycin 15.50 07/21/19 10:31 WBC RBC Hgb Hct MCV MCH MCHC RDW Std Deviation Plt Count MPV Neut % (Auto) Lymph % (Auto) [place] % (Auto) Eos % (Auto) Baso % (Auto) Neut # (Auto) Lymph # (Auto) [place] # (Auto) Eos # (Auto) Baso # (Auto) PT 12.0 INR 0.88 Sodium Potassium Chloride Carbon Dioxide Anion Gap BUN Creatinine Estimated GFR/1.73 m2 BUN/Creatinine Ratio Glucose Calculated Osmolality Calcium Random Vancomycin Assessment: Hypercapnic respiratory failure. pCO2 70 on 07/15/19. Patient apparently on home CPAP therapy qhs. Patient refused hospital BiPAP therapy at this time. Chronic hypoxemic respiratory failure. COPD exacerbation. Ongoing tobacco use prior to admission. Possible left lingular and right perihilar pneumonia. CT thorax without contrast on 07/18/19 showed advanced pulmonary emphysema, somewhat masslike focus with surrounding fibrosis involving the lingula that has increase in prominence since the previous study, neoplasm can not be excluded, a few tiny airspaces with surrounding interstitial thickening bilaterally that likely represents trace focal bronchiectasis. History of lung cancer s/p radiation. Aware. MARÍA. Possible cellulitis. Aware. Possible bacteremia with Staphylococcus Aureus. Repeat blood culture on 07/19/19 and 07/20/19 so far shows no growth. Lice. s/p Permethrin once on 07/17/19. Aware. Plan: Continue antibiotics including Vancomycin and Zosyn, On Day 7. Continue bronchodilators and steroids. We are tapering Solu-Medrol from q12h to q24h at this time. Supplemental oxygen as needed. Continue GI and DVT prophylaxis. Add Miralax BID prn at this time. Tobacco cessation education. We recommend outpatient PET scan follow-up.
[2019-07-21] MEDS: LOVENOX SUBQ SCH (21:37)
[2019-07-21] MEDS: FLOMAX PO SCH (21:39)
[2019-07-21] MEDS: PRAVACHOL PO SCH (21:40)
[2019-07-22] MEDS: DILANTIN PO SCH ×2 (01:00→08:38)
[2019-07-22] MEDS: VANCOMYCIN 1,350 MG in NS 250 ML IV SCH ×2 (01:00→10:42)
[2019-07-22 05:22] LABS: BASO# 0.02 X1000 (0.0-0.2); BASO% 0.4 % (0.0-0.8); EOS# 0.16 X1000 (0.0-0.7); EOS% 2.8 % (0.0-10.0); HEMATOCRIT 35.6 % (42.0-52.0); HEMOGLOBIN 10.8 g/dL (14.0-18.0); LYMPH# 2.08 X1000 (1.2-3.4); LYMPH% 36.5 % (20.5-51.1); MCH 29.3 PG (27-31); MCHC 30.3 g/dL (33-37); MCV 96.5 FL (81-99); MONO# 0.86 X1000 (0.11-0.59); MONO% 15.1 % (1.7-9.3); MPV 8.3 FL (7.4-10.4); NEUT# 2.58 X1000 (1.4-6.5); NEUT% 45.2 % (42.2-75.2); PLT 272 X1000 (130-400); RBC 3.69 XMIL (4.7-6.1); RDW 13.6 % (11.5-14.5)
[2019-07-22] MEDS: DUONEB (A & A) INH SCH ×2 (05:52→09:50)
[2019-07-22 05:54] LABS: AGAP 5; BUN 18 mg/dL (8-22); CALCIUM 7.7 mg/dL (8.8-10.2); CHLORIDE 94 mmol/L (98-107); COSMO 270; CREATININE 0.9 mg/dL (0.7-1.2); ESTIMATED GFR > 60; GLUCOSE 95 mg/dL (70-104); SODIUM 134 mmol/L (136-145); TCO2 35 mmol/L (25-35)
--- NOTE | 2019-07-22 06:24 | Diag Imaging Result Doc PS360 ---
CHEST-1 VIEW - 07/22/2019 INDICATION: SOB COMPARISON: 07/19/2019 FINDINGS: There is a left PICC line in good position. There is a stable hazy left perihilar infiltrate. No new infiltrates. Heart size is normal. No pneumothorax or pleural effusion. IMPRESSION: Left PICC line in good position. Stable small hazy left perihilar infiltrate. Electronically signed by Shaan Low 07/22/2019 6:21 AM
[2019-07-22] MEDS: TESSALON PO SCH (06:44)
[2019-07-22] MEDS: PRILOSEC PO SCH (06:44)
[2019-07-22] MEDS: BUSPAR PO SCH (08:38)
[2019-07-22] MEDS: LOPRESSOR PO SCH (08:38)
[2019-07-22] MEDS: LEXAPRO PO SCH (08:38)
[2019-07-22 08:50] VITALS: BP 128/82
[2019-07-22] MEDS ORDERED: SOLU-MEDROL IV SCH (10:00)
--- NOTE | 2019-07-22 10:07 | DISCHARGE SUMMARY ---
ADMISSION DATE: 07/15/2019 DISCHARGE DATE: 07/22/2019 FINAL DIAGNOSES: 1. Left infiltrate with pneumonia. 2. Exacerbation of chronic obstructive pulmonary disease. 3. Methicillin staphylococcus sensitive bacteremia. 4. History of coronary artery disease. 5. Benign prostatic hypertrophy. 6. Hyperlipidemia. 7. Hypertension. 8. History of diabetes but no longer has this. 9. Possible cellulitis lower extremities. 10. Lice, was treated. PRESENT ILLNESS: The patient came in with shortness of breath and cough with what looked like a left lingular infiltrate. He also had swelling in his lower extremities with redness. This went away overnight. He was thought that initially that it may be cellulitis, but he clears so quickly I am not sure that it was. He had a left lingular infiltrate. CT scan showed possible mass there. He has had lung cancer in the past. 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 While he was in the hospital, though we were treating with IV antibiotics. One blood culture came back as MSSA. It was resistant to IV penicillin. Repeat blood cultures have been negative. He is recommended to have 14 days of IV antibiotics after the last blood culture comes back negative. The one the 05/20 came back negative. The one on the is still pending and should have that result today. Hopefully, it will be negative as well. White counts have all been normal during this time. The patient also please add to diagnosis had Uribe and was treated for that and seems to be doing better. DISCHARGE PHYSICAL EXAMINATION: On physical examination vital signs show blood pressure 127/69, respirations 18, pulse 86, temperature 97.9 degrees Fahrenheit. HEENT is normocephalic. Extraocular movements are intact. PERRLA. Throat clear. Lungs sound clear to auscultation and percussion without rhonchi, rales, or wheezes. Heart: Regular rate and rhythm without murmurs, gallops, friction rubs. Abdomen: Soft active bowel sounds. No organomegaly or tenderness. Neurological: Intact grossly. Skin wounds where he had lice bites seem to be getting better. PLAN: We will discharge home with a PICC line and home services. We will give him his IV vancomycin at 1350 mg every 12 hours for 14 days. I will see him back in my office in about 15 to 16 days with a chest x-ray and a CBC. cc: Priyank Cortes Jr, MD
--- NOTE | 2019-07-22 17:37 | PROVIDER PROGRESS NOTE ---
Progress Note Dr. Ashley Progress Note/Pulmonary and or critical care Subjective: The patient is standing by the bedside. He is wearing his own clothes, but not the hospital gown. He states he is ready to go home. He does cough some. He states it is normal for him. Objective: Vital Signs: T 97.9 (no fever in last 24 hours), BP 123/66, [place] 75, RR 16 and SaO2 93% on NC 2L. Physical Examination: General: No acute distress noted. HEENT: Normocephalic. Atraumatic. Trachea midline. Mucosa pink and moist. PERRL. Chest: Even and unlabored. No increased work of breathing. Symmetrical excursin. Diminished breathing sounds bilaterally, otherwise, clear to auscultation. Cardiovascular: Regular rate and rhythm. S1 S2 appreciated. Gastrointestinal: Soft. Nontender. Flat. Bowel sounds present. Extremities: BLE swelling with redness. No cyanosis. No clubbing. Neuro: A/O x3. Answer simple questions. Follow simple commands. Labs and Radiology: Laboratory Results 07/22/19 07/22/19 04:59 05:00 WBC 5.70 RBC 3.69 L Hgb 10.8 L Hct 35.6 L MCV 96.5 MCH 29.3 MCHC 30.3 L RDW Std Deviation 13.6 Plt Count 272 MPV 8.3 Immature Gran % (Auto) 0.0 Neut % (Auto) 45.2 Lymph % (Auto) 36.5 [place] % (Auto) 15.1 H Eos % (Auto) 2.8 Baso % (Auto) 0.4 Immature Gran # (Auto) 0.00 Neut # (Auto) 2.58 Lymph # (Auto) 2.08 [place] # (Auto) 0.86 H Eos # (Auto) 0.16 Baso # (Auto) 0.02 Sodium 134 L Potassium 4.0 Chloride 94 L Carbon Dioxide 35 Anion Gap 5 BUN 18 Creatinine 0.9 Estimated GFR/1.73 m2 > 60 BUN/Creatinine Ratio 20 Glucose 95 Calculated Osmolality 270 Calcium 7.7 L Assessment: Hypercapnic respiratory failure. pCO2 70 on 07/15/19. Patient apparently on home CPAP therapy qhs. Patient refused hospital BiPAP therapy at this time. Chronic hypoxemic respiratory failure. COPD exacerbation. Ongoing tobacco use prior to admission. Possible left lingular and right perihilar pneumonia. CT thorax without contrast on 07/18/19 showed advanced pulmonary emphysema, somewhat masslike focus with surrounding fibrosis involving the lingula that has increase in prominence since the previous study, neoplasm can not be excluded, a few tiny airspaces with surrounding interstitial thickening bilaterally that likely represents trace focal bronchiectasis. CXR today shows stable small hazy left perihilar infiltrate. History of lung cancer s/p radiation. Aware. MARÍA. Possible cellulitis. Aware. Possible bacteremia with Staphylococcus Aureus. Repeat blood culture on 07/19/19 and 07/20/19 so far shows no growth. Lice. s/p Permethrin once on 07/17/19. Aware. Plan: Continue antibiotic Vancomycin. Continue bronchodilators and steroids. Supplemental oxygen as needed. Continue GI and DVT prophylaxis. Tobacco cessation education. We recommend outpatient PET scan follow-up. Discharge planning per Dr. Cortes.
== END 2019-07-22 13:16 | disposition home health service (06) | DRG 194 ==
LOC: ED 16:01 → 1N 18:27
PROVIDERS: ADMIT Emergency Medicine; ATTEND Emergency Medicine